=== PATIENT | female | born 1930 | race Caucasian/White ===

== ENCOUNTER 2016-05-16 07:51 | Emergency (ER) | payer MEDICARE ==
[2016-05-16 08:52] LABS: BASO # 0.1 K/mm3 (0.0-0.2); EOS # 0.2 K/mm3 (0.0-0.50); EOS % 1.2 % (0.0-3.0); LARGE UNSTAINED CELL # 0.1 K/mm3 (0.0-0.4); LARGE UNSTAINED CELL % 0.8 % (0.0-4.0); LYMPH # 1.1 K/mm3 (1.5-4.5); MEAN CORPUSCULAR HEMOGLOBIN 27.4 pg (27.0-33.0); MEAN CORPUSCULAR HGB CONC 33.6 g/dl (32.0-36.5); MEAN CORPUSCULAR VOLUME 81.7 fl (80.0-96.0); MONO # 0.5 K/mm3 (0.0-0.8); MONO % 3.1 % (0.0-5.0); NEUTROPHILS # 12.7 K/mm3 (1.8-7.7); NEUTROPHILS % 86.9 % (36.0-66.0); PLATELET COUNT, AUTOMATED 187 k/mm3 (150-450); RED CELL DISTRIBUTION WIDTH 15.1 % (11.5-14.5); WHITE BLOOD COUNT 14.6 K/mm3 (4.0-10.0)
[2016-05-16 09:06] LABS: ANION GAP 11 MEQ/L (8-16); BLOOD UREA NITROGEN 19 MG/DL (7-18); CALCIUM LEVEL 9.1 MG/DL (8.8-10.2); CARBON DIOXIDE LEVEL 25 MEQ/L (21-32); CHLORIDE LEVEL 104 MEQ/L (98-107); CREATININE FOR GFR 0.95 MG/DL (0.55-1.02); GLOMERULAR FILTRATION RATE 59.7 (>32); GLUCOSE, FASTING 127 MG/DL (83-110); POTASSIUM SERUM 4.5 MEQ/L (3.5-5.1); SODIUM LEVEL 140 MEQ/L (136-145)
--- NOTE | 2016-05-16 10:04 | REP ---
TWO VIEW CHEST: Two views of the chest are performed and compared to prior study of 12/09/2013. There is mild chronic stable interstitial prominence bilaterally. There is no acute infiltrate or pulmonary edema. The heart is not enlarged. The mediastinal silhouette is unchanged. There is some tortuosity of the thoracic aorta. There is curvature of the thoracic spine convex to the right with diffuse degenerative changes. IMPRESSION: No acute pulmonary disease. Signed by Rj Dominguez MD 05/16/2016 01:27 P
--- NOTE | 2016-05-16 14:45 | EDDOCDS ---
Nurse's Notes [facility] Name: Madeline Hogue Age: 85 yrs Sex: Female : 1930 Arrival Date: 05/16/2016 Time: 07:51 Bed 11 Private MD: Sara Christianson E Diagnosis: Shortness of breath Presentation: 05/16 07:53 Presenting complaint: EMS states: Increasing SOB for years. This morning felt like hs1 heart was racing while she was SOB. Pt states has been following up with Dr Christinason for increasing SOB. Pt states she was nauseated this morning and EMS gave 4 mg Zofran. Pt Denies chest pain. Pt did take 325 ASA before EMS arrival. Adult Sepsis Screening: The patient does not have new or worsening altered mentation. Patient's respiratory rate is less than 22. Systolic blood pressure is greater than 100. Patient has a qSOFA score of 0- Negative Sepsis Screen. Suicide/Homicide risk assessment- the patient denies having any suicidal and/or homicidal ideations and does not present with any other emotional, behavioral or mental health complaints. Status: Patient is not a marketing services manager or dependent. Transition of care: patient was not received from another setting of care. 07:53 Acuity: DEE Level 3 hs1 07:53 Method Of Arrival: Ambulance hs1 Triage Assessment: 08:33 General: Appears in no apparent distress, comfortable, Behavior is appropriate for age, hs1 cooperative. Pain: Denies pain. Neurological: Level of Consciousness is awake, alert. Cardiovascular: Rhythm is sinus rhythm No ectopy. Respiratory: Onset: The symptoms/episode began/occurred years ago. Derm: Skin is pink, warm & dry. normal. Historical: - Allergies: SULFA (SULFONAMIDES); Ciprofloxacin; - Home Meds: 1. valsartan 80 mg oral tab 1 tab nightly (Last dose: 05/15/2016) 2. atenolol 25 mg Oral tab 1 tab once daily (Last dose: 05/15/2016) 3. Vitamin D 1000 Oral 1,000 unit 2 tabs in am and 3 tabs in pm (Last dose: 05/15/2016) 4. amlodipine 5 mg Oral tab 1 tab once daily (Last dose: 05/15/2016) 5. Sertraline 100 mg daily (Last dose: 05/15/2016) 6. multivitamin Oral tab 1 tablet daily (Last dose: 05/15/2016) 7. acetaminophen 500 mg Oral cap 2 caps every 6 hours (Last dose: 05/15/2016) 8. metronidazole 0.75 % topical lotn 2 times per day 9. Astepro 0.15 % (205.5 mcg) nasal spry 1 spray 2 times per day - PMHx: Hypertension; Depression; - PSHx: Cholecystectomy; Appendectomy; Tubal ligation; - Social history: Smoking status: Patient states was never smoker of tobacco. No barriers to communication noted, The patient speaks fluent Bahraini, Speaks appropriately for age, Preferred Language: Bahraini. - Family history: Not pertinent. - : The pt / caregiver states he / she is not on anticoagulants. Home medication list is obtained from the patient, Dr Christianson med list from office visit. - Exposure Risk Screening:: None identified. Screenin:52 Infection Control. lbd 08:35 Screening information is obtained from the patient. Fall risk: No risks identified. hs1 Assistance ADL's: requires no assistance with activities of daily living. Abuse/DV Screen: The patient / caregiver reports he/she is: not in a situation that causes fear, pain or injury. Nutritional screening: No deficits noted. Advance Directives: There is no active DNR order. home support is adequate. Assessment: 08:36 General: Appears in no apparent distress, Behavior is appropriate for age, cooperative. hs1 Cardiovascular: Rhythm is sinus rhythm Chest pain is denied. Respiratory: Airway is patent Respiratory effort is even, unlabored, Breath sounds are clear bilaterally. Derm: Skin is pink, warm & dry. normal. 08:55 Reassessment: Patient appears in no apparent distress at this time. Pt states feeling hs1 hungry. Aware of waiting for test results and then conversation with MD regarding diet. . Pain: Denies pain. 09:45 General: Appears in no apparent distress, resting with family present. Pt aware of hs1 breakfast tray coming. No other needs. Pt and family discussing the fact that patient has not been eating well and is to tired she says to make meals. Discussion held regarding use of protein supplements (Ensure and Boost) and patient states she takes those sometimes. . Respiratory: Airway is patent Respiratory effort is even, unlabored. 10:55 General: Ambulatory Pulse Oximetry - tolerated well. pt states feeling weak and states hs1 that she doesn't eat very well. Pt 92% on RA while ambulatory.. 12:01 General: Appears in no apparent distress, comfortable, Behavior is appropriate for age, hs1 cooperative, Pt resting on stretcher concerned for snowfall increasing and getting home. Pt asking for MD to come in and speak regarding plan of more blood work- and patient is unsure if she wants to stay or not. No other needs noted. Pt's son present. . 13:00 General: Appears in no apparent distress, comfortable, Behavior is appropriate for age, hs1 cooperative, Pt resting son still at bedside. Pt still awaiting conversation with physician. Pt sitting up eating lunch at present no other needs noted. . Pain: Denies pain. Cardiovascular: Rhythm is sinus rhythm No ectopy. Respiratory: Airway is patent Respiratory effort is even, unlabored. 14:41 Reassessment: Patient appears in no apparent distress at this time. Patient states hs1 feeling better. Patient states symptoms have improved. Cardiovascular: Rhythm is sinus rhythm No ectopy. Respiratory: Airway is patent Respiratory effort is even, unlabored. Derm: No deficits noted. Vital Signs: 08:07 BP 155 / 67; Pulse 75; Resp 18; Temp 96.2(O); Pulse Ox 96% on R/A; Weight 68.04 kg; hs1 Height 4 ft. 11 in. (149.86 cm); Pain 0/10; 08:21 BP 183 / 75 (auto/); hs1 08:21 Pulse 76 MON; Pulse Ox 95% ; hs1 08:51 BP 138 / 67 (auto/); hs1 08:52 Pulse 72 MON; Pulse Ox 96% ; hs1 09:06 BP 111 / 52 (auto/); hs1 09:07 Pulse 72 MON; Pulse Ox 94% ; hs1 09:21 BP 143 / 65 (auto/); hs1 09:21 Pulse 72 MON; Pulse Ox 93% ; hs1 09:36 BP 157 / 70 (auto/); hs1 09:37 Pulse 80 MON; Pulse Ox 96% ; hs1 09:51 BP 157 / 66 (auto/); hs1 09:51 Pulse 76 MON; Pulse Ox 94% ; hs1 10:31 BP 154 / 63 (auto/); hs1 10:32 Pulse 76 MON; Pulse Ox 94% ; hs1 10:47 BP 131 / 63 (auto/); hs1 10:48 Pulse 76 MON; Pulse Ox 94% ; hs1 11:01 BP 146 / 69 (auto/); hs1 11:01 Pulse 76 MON; Pulse Ox 94% ; hs1 11:14 BP 162 / 70 (auto/); hs1 11:15 Pulse 80 MON; Pulse Ox 95% ; hs1 11:44 BP 133 / 84 (auto/); hs1 11:44 Pulse 72 MON; Pulse Ox 92% ; hs1 12:14 BP 135 / 60 (auto/); hs1 12:14 Pulse 76 MON; Temp 98.5(T); Pulse Ox 93% ; hs1 13:13 Pulse 76 MON; hs1 13:14 BP 125 / 61 (auto/); hs1 13:44 BP 120 / 74 (auto/); hs1 14:13 Pulse 74 MON; Pulse Ox 91% ; hs1 14:14 BP 130 / 60 (auto/); hs1 14:41 BP 130 / 62; Pulse 73; Resp 18; Temp 98.5; Pulse Ox 93% ; Pain 0/10; hs1 08:07 Body Mass Index 30.30 (68.04 kg, 149.86 cm) hs1 Vitals: 08:07 Log In Time N/A - ambulance arrival. hs1 ED Course: 07:52 Patient visited by Keiry Philip, Food Production Manager. lbd 07:52 Patient moved to Waiting lbd 07:53 Sara Christianson is Private Physician. lbd 07:53 Patient moved to 11 dy 07:56 Triage Initiated hs1 07:57 Paco Guzman MD is Attending Physician. br1 08:12 Patient visited by Nick Hooper PCA. jrd 08:12 EKG done. (by ED staff). Reviewed by Paco Guzman MD. jrd 08:15 Patient visited by Paco Guzman MD. br1 08:31 -Influenza A&B Rapid Antigen - Nose Sent. hs1 08:31 BNP Sent. hs1 08:31 Basic Metabolic Profile Sent. hs1 08:32 CBC with Diff Sent. hs1 08:32 Cardiac Injury Profile Sent. hs1 08:32 Troponin Sent. hs1 08:34 Maintain field IV. Dressing intact. Gauge & site: 20 gauge in Left AC. hs1 08:51 Patient visited by Neetu Newsome RN. hs1 08:56 The patient / caregiver is instructed regarding the plan of care and ED course. hs1 09:01 [facility] Payment Agreement was scanned into [employer] and attached to record. lg 09:25 Patient visited by Neetu Newsome RN. hs1 10:27 Patient visited by Neetu Newsome RN. hs1 10:34 Chest, 2 View (pa\E\lat) Returned. EDMS 10:57 Patient visited by Neetu Newsome RN. hs1 11:27 Patient visited by Neetu Newsome RN. hs1 12:00 Patient visited by Neetu Newsome RN. hs1 12:59 Patient visited by Neetu Newsome RN. hs1 13:32 Patient visited by Neetu Newsome RN. hs1 13:50 CARDIAC MARKER PANEL Sent. hs1 14:27 Patient visited by Neetu Newsome RN. hs1 14:27 Patient visited by Paco Guzman MD. br1 14:37 Sara Christianson is Referral Physician. br1 14:42 Discontinued IV lock intact, bleeding controlled, pressure dressing applied, No hs1 redness/swelling at site. No procedures done that require assistance. Order Results: Lab Order: Basic Metabolic Profile; SPEC'M 05/16/16 08:23 Test: GLUCOSE, FASTING; Value: 127; Range: 83-110; Abnormal: Above high normal; Units: MG/DL; Status: F Test: BLOOD UREA NITROGEN; Value: 19; Range: 7-18; Abnormal: Above high normal; Units: MG/DL; Status: F Test: CREATININE FOR GFR; Value: 0.95; Range: 0.55-1.02; Units: MG/DL; Status: F Test: GLOMERULAR FILTRATION RATE; Value: 59.7; Range: >32; Status: F Test: SODIUM LEVEL; Value: 140; Range: 136-145; Units: MEQ/L; Status: F Test: POTASSIUM SERUM; Value: 4.5; Range: 3.5-5.1; Units: MEQ/L; Status: F Test: CHLORIDE LEVEL; Value: 104; Range: 98-107; Units: MEQ/L; Status: F Test: CARBON DIOXIDE LEVEL; Value: 25; Range: 21-32; Units: MEQ/L; Status: F Test: ANION GAP; Value: 11; Range: 8-16; Units: MEQ/L; Status: F Test: CALCIUM LEVEL; Value: 9.1; Range: 8.8-10.2; Units: MG/DL; Status: F Test Note: ; Units are mL/min/1.73 m2 Chronic Kidney Disease Staging per NKF: Stage I & II GFR >=60 Normal to Mildly Decreased Stage III GFR 30-59 Moderately Decreased Stage IV GFR 15-29 Severely Decreased Stage V GFR <15 Very Little GFR Left ESRD GFR <15 on BEREAVEMENT COUNSELOR Lab Order: CBC with Diff; SPEC'M 05/16/16 08:23 Test: WHITE BLOOD COUNT; Value: 14.6; Range: 4.0-10.0; Abnormal: Above high normal; Units: K/mm3; Status: F Test: RED BLOOD COUNT; Value: 5.11; Range: 4.00-5.40; Units: M/mm3; Status: F Test: HEMOGLOBIN; Value: 14.0; Range: 12.0-16.0; Units: g/dl; Status: F Test: HEMATOCRIT; Value: 41.7; Range: 36.0-47.0; Units: %; Status: F Test: MEAN CORPUSCULAR VOLUME; Value: 81.7; Range: 80.0-96.0; Units: fl; Status: F Test: MEAN CORPUSCULAR HEMOGLOBIN; Value: 27.4; Range: 27.0-33.0; Units: pg; Status: F Test: MEAN CORPUSCULAR HGB CONC; Value: 33.6; Range: 32.0-36.5; Units: g/dl; Status: F Test: RED CELL DISTRIBUTION WIDTH; Value: 15.1; Range: 11.5-14.5; Abnormal: Above high normal; Units: %; Status: F Test: PLATELET COUNT, AUTOMATED; Value: 187; Range: 150-450; Units: k/mm3; Status: F Test: NEUTROPHILS %; Value: 86.9; Range: 36.0-66.0; Abnormal: Above high normal; Units: %; Status: F Test: LYMPH %; Value: 7.0; Range: 24.0-44.0; Abnormal: Below low normal; Units: %; Status: F Test: MONO %; Value: 3.1; Range: 0.0-5.0; Units: %; Status: F Test: EOS %; Value: 1.2; Range: 0.0-3.0; Units: %; Status: F Test: BASO %; Value: 1.0; Range: 0.0-1.0; Units: %; Status: F Test: LARGE UNSTAINED CELL %; Value: 0.8; Range: 0.0-4.0; Units: %; Status: F Test: NEUTROPHILS #; Value: 12.7; Range: 1.8-7.7; Abnormal: Above high normal; Units: K/mm3; Status: F Test: LYMPH #; Value: 1.1; Range: 1.5-4.5; Abnormal: Below low normal; Units: K/mm3; Status: F Test: MONO #; Value: 0.5; Range: 0.0-0.8; Units: K/mm3; Status: F Test: EOS #; Value: 0.2; Range: 0.0-0.50; Units: K/mm3; Status: F Test: BASO #; Value: 0.1; Range: 0.0-0.2; Units: K/mm3; Status: F Test: LARGE UNSTAINED CELL #; Value: 0.1; Range: 0.0-0.4; Units: K/mm3; Status: F Lab Order: Cardiac Injury Profile; SPEC'M 05/16/16 08:23 Test: CPK CREATINE PHOSPHOKINASE; Value: 90; Range: 26-192; Units: U/L; Status: F Test: CK-MB VALUE MASS; Value: 1.3; Range: 0.0-3.6; Units: NG/ML; Status: F Test: MB/CK RELATIVE INDEX; Value: 1.44; Range: < OR =4; Status: F Test Note: ; DIAGNOSIS CRITERIA MMB ng/ml Relative Index (RI) NON-AMI < or = 5 N/A DOMINGUEZ ZONE > 5 < or = 4 AMI > 5 > 4 Lab Order: Troponin; SPEC'M 01/06/17 08:23 Test: TROPONIN I; Value: < 0.02; Range: < 0.10; Units: NG/ML; Status: F Test Note: ; Troponin I Reference Interval for [employer] [place] LOCI: 99th Percentile= 0.00-0.045 ng/ml Risk Stratification: <= 0.10 ng/ml Decreased Risk for Adverse Clinical Events. 0.10-1.50 ng/ml Increased Risk for Adverse Clinical Events. Evaluation of additional criterion and/or repeat testing in 2-6 hours is suggested to rule out myocardial damage. >= 1.50 ng/ml Indicative of Myocardial Injury. Lab Order: BNP; SPEC'M 05/16/16 08:23 Test: BRAIN NATRIURETIC PEPTIDE; Value: 360; Range: <100; Abnormal: Above high normal; Units: PG/ML; Status: F Lab Order: -Influenza A&B Rapid Antigen - Nose; SPEC'M 05/16/16 08:27 Test: INFLUENZA A RAPID SCR by ICA; Value: INFLUENZA A RESULTS NEGATIVE; Status: F Test: INFLUENZA A RAPID SCR by ICA; Value: Comments:; Status: F Test: INFLUENZA B RAPID SCR by ICA; Value: INFLUENZA B RESULTS NEGATIVE; Status: F Test Note: ; The Influenza test is a direct rapid immunoassay for the qualitative detection of Influenza viral antigen. Cell culture (Viral Culture) testing should be considered to confirm NEGATIVE results and to assist in detecting other viruses that can provide similar clinical symptoms. Please contact the lab within 24 hours ([phone]) if confirmatory testing is desired. Lab Order: CARDIAC MARKER PANEL; SPEC'M 05/16/16 13:49 Test: CPK CREATINE PHOSPHOKINASE; Value: 73; Range: 26-192; Units: U/L; Status: F Test: CK-MB VALUE MASS; Value: 1.8; Range: 0.0-3.6; Units: NG/ML; Status: F Test: MB/CK RELATIVE INDEX; Value: 2.46; Range: < OR =4; Status: F Test: TROPONIN I; Value: < 0.02; Range: < 0.10; Units: NG/ML; Status: F Test Note: ; DIAGNOSIS CRITERIA MMB ng/ml Relative Index (RI) NON-AMI < or = 5 N/A DOMINGUEZ ZONE > 5 < or = 4 AMI > 5 > 4 Radiology Order: Chest, 2 View (pa\E\lat) Test: Chest, 2 View (pa\E\lat) REASON FOR EXAMINATION: Shortness of Breath; TWO VIEW CHEST:; ; Two views of the chest are performed and compared to prior study of 12/09/2013.; ; ; There is mild chronic stable interstitial prominence bilaterally. There is no; acute infiltrate or pulmonary edema. The heart is not enlarged. The mediastinal; silhouette is unchanged. There is some tortuosity of the thoracic aorta. There; is curvature of the thoracic spine convex to the right with diffuse degenerative; changes.; ; IMPRESSION:; ; No acute pulmonary disease.; ; ; Signed by; Rj Dominguez MD 05/16/2016 01:27 P; Outcome: 14:37 Discharge ordered by Provider. br1 14:42 Discharge Assessment: Patient awake, alert and oriented x 3. No cognitive and/or hs1 functional deficits noted. Patient verbalized understanding of disposition instructions. patient administered narcotics - no. The following High Risk Discharge criteria are identified: None. Discharged to home ambulatory. Condition: good. Discharge instructions given to patient, Instructed on discharge instructions, follow up and referral plans. medication usage, Demonstrated understanding of instructions, medications, Pt was receptive of discharge instructions/ teaching. No special radiology studies were completed. Property sent home with patient. 14:43 Patient left the ED. hs1 Signatures: Dispatcher [employer] EDMS Keiry Philip, Food Production Manager Unit lbd Lee Ann Corbett, Pepe Pelayo lg, RN Paco Levy MD MD br1 Neetu Newsome RN RN hs1 Nick Hooper PCA PCA jrd Corrections: (The following items were deleted from the chart) 13:05 12:14 Pulse 76bpm; Monitor; Pulse Ox 93%; hs1 hs1 MTDD
--- NOTE | 2016-05-16 14:45 | EDDOCDS ---
Physician Documentation [facility] [place] Name: Madeline Hogue Age: 85 yrs Sex: Female : 1930 Arrival Date: 05/16/2016 Time: 07:51 Bed 11 Private MD: Sara Christianson E Disposition: 05/16/16 14:37 Discharged to Home/Self Care. Impression: Shortness of breath. - Condition is Stable. - Discharge Instructions: Shortness of Breath. - Medication Reconciliation, Local Pharmacy Hours form. - Follow up: Sara Christianson; When: 1 week; Reason: Recheck today's complaints. - Problem is new. - Symptoms are resolved. - Notes: You were seen in the ED for shortness of breath. Bloodwork along with EKG of the heart and chest Xray showed no acute findings. As you are feeling better you may return home to keep your appointment to see Dr. Christianson next week for further evaluation. Please call today to confirm the appointment.
Return to the ED for any return of shortness of breath, chest pain, lightheadedness, loss of consciousness or any other concerns. Historical: - Allergies: SULFA (SULFONAMIDES); Ciprofloxacin; - Home Meds: 1. valsartan 80 mg oral tab 1 tab nightly (Last dose: 05/15/2016) 2. atenolol 25 mg Oral tab 1 tab once daily (Last dose: 05/15/2016) 3. Vitamin D 1000 Oral 1,000 unit 2 tabs in am and 3 tabs in pm (Last dose: 05/15/2016) 4. amlodipine 5 mg Oral tab 1 tab once daily (Last dose: 05/15/2016) 5. Sertraline 100 mg daily (Last dose: 05/15/2016) 6. multivitamin Oral tab 1 tablet daily (Last dose: 05/15/2016) 7. acetaminophen 500 mg Oral cap 2 caps every 6 hours (Last dose: 05/15/2016) 8. metronidazole 0.75 % topical lotn 2 times per day 9. Astepro 0.15 % (205.5 mcg) nasal spry 1 spray 2 times per day - PMHx: Hypertension; Depression; - PSHx: Cholecystectomy; Appendectomy; Tubal ligation; - Social history: Smoking status: Patient states was never smoker of tobacco. No barriers to communication noted, The patient speaks fluent Telugu, Speaks appropriately for age, Preferred Language: Telugu. - Family history: Not pertinent. - : The pt / caregiver states he / she is not on anticoagulants. Home medication list is obtained from the patient, Dr Christianson med list from office visit. - Exposure Risk Screening:: None identified. Vital Signs: 05/16 08:07 BP 155 / 67; Pulse 75; Resp 18; Temp 96.2(O); Pulse Ox 96% on R/A; Weight 68.04 kg / hs1 150 lbs; Height 4 ft. 11 in. (149.86 cm); Pain 0/10; 08:21 BP 183 / 75 (auto/); hs1 08:21 Pulse 76 MON; Pulse Ox 95% ; hs1 08:51 BP 138 / 67 (auto/); hs1 08:52 Pulse 72 MON; Pulse Ox 96% ; hs1 09:06 BP 111 / 52 (auto/); hs1 09:07 Pulse 72 MON; Pulse Ox 94% ; hs1 09:21 BP 143 / 65 (auto/); hs1 09:21 Pulse 72 MON; Pulse Ox 93% ; hs1 09:36 BP 157 / 70 (auto/); hs1 09:37 Pulse 80 MON; Pulse Ox 96% ; hs1 09:51 BP 157 / 66 (auto/); hs1 09:51 Pulse 76 MON; Pulse Ox 94% ; hs1 10:31 BP 154 / 63 (auto/); hs1 10:32 Pulse 76 MON; Pulse Ox 94% ; hs1 10:47 BP 131 / 63 (auto/); hs1 10:48 Pulse 76 MON; Pulse Ox 94% ; hs1 11:01 BP 146 / 69 (auto/); hs1 11:01 Pulse 76 MON; Pulse Ox 94% ; hs1 11:14 BP 162 / 70 (auto/); hs1 11:15 Pulse 80 MON; Pulse Ox 95% ; hs1 11:44 BP 133 / 84 (auto/); hs1 11:44 Pulse 72 MON; Pulse Ox 92% ; hs1 12:14 BP 135 / 60 (auto/); hs1 12:14 Pulse 76 MON; Temp 98.5(T); Pulse Ox 93% ; hs1 13:13 Pulse 76 MON; hs1 13:14 BP 125 / 61 (auto/); hs1 13:44 BP 120 / 74 (auto/); hs1 14:13 Pulse 74 MON; Pulse Ox 91% ; hs1 14:14 BP 130 / 60 (auto/); hs1 14:41 BP 130 / 62; Pulse 73; Resp 18; Temp 98.5; Pulse Ox 93% ; Pain 0/10; hs1 08:07 Body Mass Index 30.30 (68.04 kg, 149.86 cm) hs1 MDM: 07:58 Asp Net C Developer/Pulse Ox/q 30 min VS ordered. br1 07:58 IV Saline Lock ordered. br1 07:58 Rhythm Strip to chart ordered. br1 07:58 Undress patient appropriately for examination ordered. br1 07:59 Basic Metabolic Profile Ordered. EDMS 07:59 CBC with Diff Ordered. EDMS 07:59 Cardiac Injury Profile Ordered. EDMS 07:59 Troponin Ordered. EDMS 07:59 ECG WITH READING ER PHYS+CARDIAG ordered. EDMS 08:01 BNP Ordered. EDMS 08:16 -Influenza A&B Rapid Antigen - Nose Ordered. EDMS 08:16 Chest, 2 View (pa\E\lat) Ordered. EDMS 08:25 Financial registration complete. lg 09:01 [facility] Payment Agreement was scanned into [employer] and attached to record. lg 09:54 REGULAR+DIET ordered. EDMS 10:21 Basic Metabolic Profile Reviewed. br1 10:21 CBC with Diff Reviewed. br1 10:21 BNP Reviewed. br1 10:21 Cardiac Injury Profile Reviewed. br1 10:21 Troponin Reviewed. br1 10:21 -Influenza A&B Rapid Antigen - Nose Reviewed. br1 10:[address] [facility] Pulse Oximetry ordered. br1 10:43 Repeat EKG (put time details section) ordered. br1 10:43 Redraw CIP &Troponin (put time in details section) ordered. br1 10:46 Repeat EKG (put time details section) complete. lbd 10:46 Redraw CIP &Troponin (put time in details section) complete. lbd 10:49 CARDIAC MARKER PANEL Ordered. EDMS 10:50 ECG WITH READING ER PHYS ordered. EDMS 11:27 REGULAR+DIET ordered. EDMS 14:26 CARDIAC MARKER PANEL Reviewed. br1 14:26 Chest, 2 View (pa\E\lat) Reviewed. br1 Signatures: Dispatcher [employer] EDMS Keiry Philip, Team Lead Unit lbd Lee Ann Corbett, Reg Reg lg Paco Guzman MD MD br1 Neetu Newsome RN RN hs1 The chart was reviewed and I authenticate all verbal orders and agree with the evaluation and treatment provided.Attachments: 09:01 [facility] Payment Agreement lg MTDD
--- NOTE | 2016-05-17 08:26 | ECGEPIP ---
Stationary ECG Study [facility] - ED Test Date: 2016-05-16 Pat Name: ANUSHA ALVARENGA Department: Room: - Gender: F Adjunct Lecturer: mickie : 1930 Requested By: DOMINGO Moon Order Number: [id number] Reading MD: Odalis Alas Measurements Intervals [place] Rate: 74 P: 73 HI: 141 QRS: 54 QRSD: 91 T: 50 QT: 395 QTc: 439 Interpretive Statements SINUS RHYTHM NSTTW ABNORMALITY SIMILAR 12/09/13 Electronically Signed On 05-17-2016 8:26:04 EST by Odalis Alas
--- NOTE | 2016-05-17 08:35 | ECGEPIP ---
Stationary ECG Study [facility] - ED Test Date: 2016-05-16 Pat Name: ANUSHA ALVARENGA Department: Room: - Gender: F Burner Hand: rn : 1930 Requested By: DOMINGO Moon Order Number: [id number] Reading MD: Odalis Alas Measurements Intervals [place] Rate: 70 P: 60 MD: 148 QRS: 43 QRSD: 90 T: 52 QT: 401 QTc: 434 Interpretive Statements SINUS RHYTHM NSTTW ABNORMALITY SIMILAR 05/16/16 8:07 Electronically Signed On 05-17-2016 8:34:35 EST by Odalis Alas
--- NOTE | 2016-05-20 09:16 | EDDOCDS ---
Physician Documentation [facility] Name: Madeline Hogue Age: 85 yrs Sex: Female : 1930 Arrival Date: 05/16/2016 Time: 07:51 Bed 11 Private MD: Sara Christianson E Disposition: 05/16/16 14:37 Discharged to Home/Self Care. Impression: Shortness of breath. - Condition is Stable. - Discharge Instructions: Shortness of Breath. - Medication Reconciliation, Local Pharmacy Hours form. - Follow up: Sara Christianson; When: 1 week; Reason: Recheck today's complaints. - Problem is new. - Symptoms are resolved. - Notes: You were seen in the ED for shortness of breath. Bloodwork along with EKG of the heart and chest Xray showed no acute findings. As you are feeling better you may return home to keep your appointment to see Dr. Christianson next week for further evaluation. Please call today to confirm the appointment.
Return to the ED for any return of shortness of breath, chest pain, lightheadedness, loss of consciousness or any other concerns. Historical: - Allergies: SULFA (SULFONAMIDES); Ciprofloxacin; - Home Meds: 1. valsartan 80 mg oral tab 1 tab nightly (Last dose: 05/15/2016) 2. atenolol 25 mg Oral tab 1 tab once daily (Last dose: 05/15/2016) 3. Vitamin D 1000 Oral 1,000 unit 2 tabs in am and 3 tabs in pm (Last dose: 05/15/2016) 4. amlodipine 5 mg Oral tab 1 tab once daily (Last dose: 05/15/2016) 5. Sertraline 100 mg daily (Last dose: 05/15/2016) 6. multivitamin Oral tab 1 tablet daily (Last dose: 05/15/2016) 7. acetaminophen 500 mg Oral cap 2 caps every 6 hours (Last dose: 05/15/2016) 8. metronidazole 0.75 % topical lotn 2 times per day 9. Astepro 0.15 % (205.5 mcg) nasal spry 1 spray 2 times per day - PMHx: Hypertension; Depression; - PSHx: Cholecystectomy; Appendectomy; Tubal ligation; - Social history: Smoking status: Patient states was never smoker of tobacco. No barriers to communication noted, The patient speaks fluent Amharic, Speaks appropriately for age, Preferred Language: Amharic. - Family history: Not pertinent. - : The pt / caregiver states he / she is not on anticoagulants. Home medication list is obtained from the patient, Dr Christianson med list from office visit. - Exposure Risk Screening:: None identified. Vital Signs: 05/16 08:07 BP 155 / 67; Pulse 75; Resp 18; Temp 96.2(O); Pulse Ox 96% on R/A; Weight 68.04 kg / hs1 150 lbs; Height 4 ft. 11 in. (149.86 cm); Pain 0/10; 08:21 BP 183 / 75 (auto/); hs1 08:21 Pulse 76 MON; Pulse Ox 95% ; hs1 08:51 BP 138 / 67 (auto/); hs1 08:52 Pulse 72 MON; Pulse Ox 96% ; hs1 09:06 BP 111 / 52 (auto/); hs1 09:07 Pulse 72 MON; Pulse Ox 94% ; hs1 09:21 BP 143 / 65 (auto/); hs1 09:21 Pulse 72 MON; Pulse Ox 93% ; hs1 09:36 BP 157 / 70 (auto/); hs1 09:37 Pulse 80 MON; Pulse Ox 96% ; hs1 09:51 BP 157 / 66 (auto/); hs1 09:51 Pulse 76 MON; Pulse Ox 94% ; hs1 10:31 BP 154 / 63 (auto/); hs1 10:32 Pulse 76 MON; Pulse Ox 94% ; hs1 10:47 BP 131 / 63 (auto/); hs1 10:48 Pulse 76 MON; Pulse Ox 94% ; hs1 11:01 BP 146 / 69 (auto/); hs1 11:01 Pulse 76 MON; Pulse Ox 94% ; hs1 11:14 BP 162 / 70 (auto/); hs1 11:15 Pulse 80 MON; Pulse Ox 95% ; hs1 11:44 BP 133 / 84 (auto/); hs1 11:44 Pulse 72 MON; Pulse Ox 92% ; hs1 12:14 BP 135 / 60 (auto/); hs1 12:14 Pulse 76 MON; Temp 98.5(T); Pulse Ox 93% ; hs1 13:13 Pulse 76 MON; hs1 13:14 BP 125 / 61 (auto/); hs1 13:44 BP 120 / 74 (auto/); hs1 14:13 Pulse 74 MON; Pulse Ox 91% ; hs1 14:14 BP 130 / 60 (auto/); hs1 14:41 BP 130 / 62; Pulse 73; Resp 18; Temp 98.5; Pulse Ox 93% ; Pain 0/10; hs1 08:07 Body Mass Index 30.30 (68.04 kg, 149.86 cm) hs1 MDM: 07:58 Volumetric Weigher/Pulse Ox/q 30 min VS ordered. br1 07:58 IV Saline Lock ordered. br1 07:58 Rhythm Strip to chart ordered. br1 07:58 Undress patient appropriately for examination ordered. br1 07:59 Basic Metabolic Profile Ordered. EDMS 07:59 CBC with Diff Ordered. EDMS 07:59 Cardiac Injury Profile Ordered. EDMS 07:59 Troponin Ordered. EDMS 07:59 ECG WITH READING ER PHYS+CARDIAG ordered. EDMS 08:01 BNP Ordered. EDMS 08:16 -Influenza A&B Rapid Antigen - Nose Ordered. EDMS 08:16 Chest, 2 View (pa\E\lat) Ordered. EDMS 08:25 Financial registration complete. lg 09:01 [facility] Payment Agreement was scanned into [email or web address] and attached to record. lg 09:54 REGULAR+DIET ordered. EDMS 10:21 Basic Metabolic Profile Reviewed. br1 10:21 CBC with Diff Reviewed. br1 10:21 BNP Reviewed. br1 10:21 Cardiac Injury Profile Reviewed. br1 10:21 Troponin Reviewed. br1 10:21 -Influenza A&B Rapid Antigen - Nose Reviewed. br1 10:24 Ambulate Patient wt Pulse Oximetry ordered. br1 10:43 Repeat EKG (put time details section) ordered. br1 10:43 Redraw CIP &Troponin (put time in details section) ordered. br1 10:46 Repeat EKG (put time details section) complete. lbd 10:46 Redraw CIP &Troponin (put time in details section) complete. lbd 10:49 CARDIAC MARKER PANEL Ordered. EDMS 10:50 ECG WITH READING ER PHYS ordered. EDMS 11:27 REGULAR+DIET ordered. EDMS 14:26 CARDIAC MARKER PANEL Reviewed. br1 14:26 Chest, 2 View (pa\E\lat) Reviewed. br1 05/17 09:01 T-Sheet-- Draft Copy was scanned into [employer] and attached to record. gb 09:01 ECG/EKG was scanned into [employer] and attached to record. gb 09:01 Radiology Report was scanned into [employer] and attached to record. gb 12:54 PCR was scanned into [employer] and attached to record. gb Signatures: Dispatcher [employer] EDMS Keiry Philip, Spooler Operator Unit lbd Tova Monroy, Reg Reg gb Lee Ann Corbett, Reg Reg lg Paco Guzman MD MD br1 Neetu Newsome, RN RN hs1 The chart was reviewed and I authenticate all verbal orders and agree with the evaluation and treatment provided.Attachments: 05/16 09:01 [facility] Payment Agreement lg 05/17 09:01 T-Sheet-- Draft Copy gb 09:01 ECG/EKG gb Chart Complete MTDD
--- NOTE | 2016-05-20 09:16 | EDDOCDS ---
Nurse's Notes [facility] Name: Anusha Hogue Age: 85 yrs Sex: Female : 1930 Arrival Date: 05/16/2016 Time: 07:51 Bed 11 Private MD: Sara Christianson E Diagnosis: Shortness of breath Presentation: 05/16 07:53 Presenting complaint: EMS states: Increasing SOB for years. This morning felt like hs1 heart was racing while she was SOB. Pt states has been following up with Dr Christianson for increasing SOB. Pt states she was nauseated this morning and EMS gave 4 mg Zofran. Pt Denies chest pain. Pt did take 325 ASA before EMS arrival. Adult Sepsis Screening: The patient does not have new or worsening altered mentation. Patient's respiratory rate is less than 22. Systolic blood pressure is greater than 100. Patient has a qSOFA score of 0- Negative Sepsis Screen. Suicide/Homicide risk assessment- the patient denies having any suicidal and/or homicidal ideations and does not present with any other emotional, behavioral or mental health complaints. Status: Patient is not a foreign exchange services manager or dependent. Transition of care: patient was not received from another setting of care. 07:53 Acuity: DEE Level 3 hs1 07:53 Method Of Arrival: Ambulance hs1 Triage Assessment: 08:33 General: Appears in no apparent distress, comfortable, Behavior is appropriate for age, hs1 cooperative. Pain: Denies pain. Neurological: Level of Consciousness is awake, alert. Cardiovascular: Rhythm is sinus rhythm No ectopy. Respiratory: Onset: The symptoms/episode began/occurred years ago. Derm: Skin is pink, warm & dry. normal. Historical: - Allergies: SULFA (SULFONAMIDES); Ciprofloxacin; - Home Meds: 1. valsartan 80 mg oral tab 1 tab nightly (Last dose: 05/15/2016) 2. atenolol 25 mg Oral tab 1 tab once daily (Last dose: 05/15/2016) 3. Vitamin D 1000 Oral 1,000 unit 2 tabs in am and 3 tabs in pm (Last dose: 05/15/2016) 4. amlodipine 5 mg Oral tab 1 tab once daily (Last dose: 05/15/2016) 5. Sertraline 100 mg daily (Last dose: 05/15/2016) 6. multivitamin Oral tab 1 tablet daily (Last dose: 05/15/2016) 7. acetaminophen 500 mg Oral cap 2 caps every 6 hours (Last dose: 05/15/2016) 8. metronidazole 0.75 % topical lotn 2 times per day 9. Astepro 0.15 % (205.5 mcg) nasal spry 1 spray 2 times per day - PMHx: Hypertension; Depression; - PSHx: Cholecystectomy; Appendectomy; Tubal ligation; - Social history: Smoking status: Patient states was never smoker of tobacco. No barriers to communication noted, The patient speaks fluent Afghan, Speaks appropriately for age, Preferred Language: Afghan. - Family history: Not pertinent. - : The pt / caregiver states he / she is not on anticoagulants. Home medication list is obtained from the patient, Dr Christianson med list from office visit. - Exposure Risk Screening:: None identified. Screenin:52 Infection Control. lbd 08:35 Screening information is obtained from the patient. Fall risk: No risks identified. hs1 Assistance ADL's: requires no assistance with activities of daily living. Abuse/DV Screen: The patient / caregiver reports he/she is: not in a situation that causes fear, pain or injury. Nutritional screening: No deficits noted. Advance Directives: There is no active DNR order. home support is adequate. Assessment: 08:36 General: Appears in no apparent distress, Behavior is appropriate for age, cooperative. hs1 Cardiovascular: Rhythm is sinus rhythm Chest pain is denied. Respiratory: Airway is patent Respiratory effort is even, unlabored, Breath sounds are clear bilaterally. Derm: Skin is pink, warm & dry. normal. 08:55 Reassessment: Patient appears in no apparent distress at this time. Pt states feeling hs1 hungry. Aware of waiting for test results and then conversation with MD regarding diet. . Pain: Denies pain. 09:45 General: Appears in no apparent distress, resting with family present. Pt aware of hs1 breakfast tray coming. No other needs. Pt and family discussing the fact that patient has not been eating well and is to tired she says to make meals. Discussion held regarding use of protein supplements (Ensure and Boost) and patient states she takes those sometimes. . Respiratory: Airway is patent Respiratory effort is even, unlabored. 10:55 General: Ambulatory Pulse Oximetry - tolerated well. pt states feeling weak and states hs1 that she doesn't eat very well. Pt 92% on RA while ambulatory.. 12:01 General: Appears in no apparent distress, comfortable, Behavior is appropriate for age, hs1 cooperative, Pt resting on stretcher concerned for snowfall increasing and getting home. Pt asking for MD to come in and speak regarding plan of more blood work- and patient is unsure if she wants to stay or not. No other needs noted. Pt's son present. . 13:00 General: Appears in no apparent distress, comfortable, Behavior is appropriate for age, hs1 cooperative, Pt resting son still at bedside. Pt still awaiting conversation with physician. Pt sitting up eating lunch at present no other needs noted. . Pain: Denies pain. Cardiovascular: Rhythm is sinus rhythm No ectopy. Respiratory: Airway is patent Respiratory effort is even, unlabored. 14:41 Reassessment: Patient appears in no apparent distress at this time. Patient states hs1 feeling better. Patient states symptoms have improved. Cardiovascular: Rhythm is sinus rhythm No ectopy. Respiratory: Airway is patent Respiratory effort is even, unlabored. Derm: No deficits noted. Vital Signs: 08:07 BP 155 / 67; Pulse 75; Resp 18; Temp 96.2(O); Pulse Ox 96% on R/A; Weight 68.04 kg; hs1 Height 4 ft. 11 in. (149.86 cm); Pain 0/10; 08:21 BP 183 / 75 (auto/); hs1 08:21 Pulse 76 MON; Pulse Ox 95% ; hs1 08:51 BP 138 / 67 (auto/); hs1 08:52 Pulse 72 MON; Pulse Ox 96% ; hs1 09:06 BP 111 / 52 (auto/); hs1 09:07 Pulse 72 MON; Pulse Ox 94% ; hs1 09:21 BP 143 / 65 (auto/); hs1 09:21 Pulse 72 MON; Pulse Ox 93% ; hs1 09:36 BP 157 / 70 (auto/); hs1 09:37 Pulse 80 MON; Pulse Ox 96% ; hs1 09:51 BP 157 / 66 (auto/); hs1 09:51 Pulse 76 MON; Pulse Ox 94% ; hs1 10:31 BP 154 / 63 (auto/); hs1 10:32 Pulse 76 MON; Pulse Ox 94% ; hs1 10:47 BP 131 / 63 (auto/); hs1 10:48 Pulse 76 MON; Pulse Ox 94% ; hs1 11:01 BP 146 / 69 (auto/); hs1 11:01 Pulse 76 MON; Pulse Ox 94% ; hs1 11:14 BP 162 / 70 (auto/); hs1 11:15 Pulse 80 MON; Pulse Ox 95% ; hs1 11:44 BP 133 / 84 (auto/); hs1 11:44 Pulse 72 MON; Pulse Ox 92% ; hs1 12:14 BP 135 / 60 (auto/); hs1 12:14 Pulse 76 MON; Temp 98.5(T); Pulse Ox 93% ; hs1 13:13 Pulse 76 MON; hs1 13:14 BP 125 / 61 (auto/); hs1 13:44 BP 120 / 74 (auto/); hs1 14:13 Pulse 74 MON; Pulse Ox 91% ; hs1 14:14 BP 130 / 60 (auto/); hs1 14:41 BP 130 / 62; Pulse 73; Resp 18; Temp 98.5; Pulse Ox 93% ; Pain 0/10; hs1 08:07 Body Mass Index 30.30 (68.04 kg, 149.86 cm) hs1 Vitals: 08:07 Log In Time N/A - ambulance arrival. hs1 ED Course: 07:52 Patient visited by Keiry Philip, Fiscal Services Director. lbd 07:52 Patient moved to Waiting lbd 07:53 Sara Christianson is Private Physician. lbd 07:53 Patient moved to 11 dy 07:56 Triage Initiated hs1 07:57 Paco Guzman MD is Attending Physician. br1 08:12 Patient visited by Nick Hooper PCA. jrd 08:12 EKG done. (by ED staff). Reviewed by Paco Guzman MD. jrd 08:15 Patient visited by Paco Guzman MD. br1 08:31 -Influenza A&B Rapid Antigen - Nose Sent. hs1 08:31 BNP Sent. hs1 08:31 Basic Metabolic Profile Sent. hs1 08:32 CBC with Diff Sent. hs1 08:32 Cardiac Injury Profile Sent. hs1 08:32 Troponin Sent. hs1 08:34 Maintain field IV. Dressing intact. Gauge & site: 20 gauge in Left AC. hs1 08:51 Patient visited by Neetu Newsome RN. hs1 08:56 The patient / caregiver is instructed regarding the plan of care and ED course. hs1 09:01 [facility] Payment Agreement was scanned into [employer] and attached to record. lg 09:25 Patient visited by Neetu Newsome RN. hs1 10:27 Patient visited by Neetu Newsome RN. hs1 10:34 Chest, 2 View (pa\E\lat) Returned. EDMS 10:57 Patient visited by Neetu Newsome RN. hs1 11:27 Patient visited by Neetu Newsome RN. hs1 12:00 Patient visited by Neetu Newsome RN. hs1 12:59 Patient visited by Neetu Newsome RN. hs1 13:32 Patient visited by Neetu Newsome RN. hs1 13:50 CARDIAC MARKER PANEL Sent. hs1 14:27 Patient visited by Neetu Newsome RN. hs1 14:27 Patient visited by Paco Guzman MD. br1 14:37 Sara Christianson is Referral Physician. br1 14:42 Discontinued IV lock intact, bleeding controlled, pressure dressing applied, No hs1 redness/swelling at site. No procedures done that require assistance. 07 08:38 EKG-ADULT Returned. EDMS 08:39 ECG WITH READING ER PHYS Returned. EDMS 09:01 T-Sheet-- Draft Copy was scanned into [employer] and attached to record. gb 09:01 ECG/EKG was scanned into [employer] and attached to record. gb 09:01 Radiology Report was scanned into [employer] and attached to record. gb 12:54 PCR was scanned into [employer] and attached to record. gb Order Results: Lab Order: Basic Metabolic Profile; SPEC'M 05/16/16 08:23 Test: GLUCOSE, FASTING; Value: 127; Range: 83-110; Abnormal: Above high normal; Units: MG/DL; Status: F Test: BLOOD UREA NITROGEN; Value: 19; Range: 7-18; Abnormal: Above high normal; Units: MG/DL; Status: F Test: CREATININE FOR GFR; Value: 0.95; Range: 0.55-1.02; Units: MG/DL; Status: F Test: GLOMERULAR FILTRATION RATE; Value: 59.7; Range: >32; Status: F Test: SODIUM LEVEL; Value: 140; Range: 136-145; Units: MEQ/L; Status: F Test: POTASSIUM SERUM; Value: 4.5; Range: 3.5-5.1; Units: MEQ/L; Status: F Test: CHLORIDE LEVEL; Value: 104; Range: 98-107; Units: MEQ/L; Status: F Test: CARBON DIOXIDE LEVEL; Value: 25; Range: 21-32; Units: MEQ/L; Status: F Test: ANION GAP; Value: 11; Range: 8-16; Units: MEQ/L; Status: F Test: CALCIUM LEVEL; Value: 9.1; Range: 8.8-10.2; Units: MG/DL; Status: F Test Note: ; Units are mL/min/1.73 m2 Chronic Kidney Disease Staging per NKF: Stage I & II GFR >=60 Normal to Mildly Decreased Stage III GFR 30-59 Moderately Decreased Stage IV GFR 15-29 Severely Decreased Stage V GFR <15 Very Little GFR Left ESRD GFR <15 on CLAM BED WORKER Lab Order: CBC with Diff; SPEC'M 05/16/16 08:23 Test: WHITE BLOOD COUNT; Value: 14.6; Range: 4.0-10.0; Abnormal: Above high normal; Units: K/mm3; Status: F Test: RED BLOOD COUNT; Value: 5.11; Range: 4.00-5.40; Units: M/mm3; Status: F Test: HEMOGLOBIN; Value: 14.0; Range: 12.0-16.0; Units: g/dl; Status: F Test: HEMATOCRIT; Value: 41.7; Range: 36.0-47.0; Units: %; Status: F Test: MEAN CORPUSCULAR VOLUME; Value: 81.7; Range: 80.0-96.0; Units: fl; Status: F Test: MEAN CORPUSCULAR HEMOGLOBIN; Value: 27.4; Range: 27.0-33.0; Units: pg; Status: F Test: MEAN CORPUSCULAR HGB CONC; Value: 33.6; Range: 32.0-36.5; Units: g/dl; Status: F Test: RED CELL DISTRIBUTION WIDTH; Value: 15.1; Range: 11.5-14.5; Abnormal: Above high normal; Units: %; Status: F Test: PLATELET COUNT, AUTOMATED; Value: 187; Range: 150-450; Units: k/mm3; Status: F Test: NEUTROPHILS %; Value: 86.9; Range: 36.0-66.0; Abnormal: Above high normal; Units: %; Status: F Test: LYMPH %; Value: 7.0; Range: 24.0-44.0; Abnormal: Below low normal; Units: %; Status: F Test: MONO %; Value: 3.1; Range: 0.0-5.0; Units: %; Status: F Test: EOS %; Value: 1.2; Range: 0.0-3.0; Units: %; Status: F Test: BASO %; Value: 1.0; Range: 0.0-1.0; Units: %; Status: F Test: LARGE UNSTAINED CELL %; Value: 0.8; Range: 0.0-4.0; Units: %; Status: F Test: NEUTROPHILS #; Value: 12.7; Range: 1.8-7.7; Abnormal: Above high normal; Units: K/mm3; Status: F Test: LYMPH #; Value: 1.1; Range: 1.5-4.5; Abnormal: Below low normal; Units: K/mm3; Status: F Test: MONO #; Value: 0.5; Range: 0.0-0.8; Units: K/mm3; Status: F Test: EOS #; Value: 0.2; Range: 0.0-0.50; Units: K/mm3; Status: F Test: BASO #; Value: 0.1; Range: 0.0-0.2; Units: K/mm3; Status: F Test: LARGE UNSTAINED CELL #; Value: 0.1; Range: 0.0-0.4; Units: K/mm3; Status: F Lab Order: Cardiac Injury Profile; SPEC'M 05/16/16 08:23 Test: CPK CREATINE PHOSPHOKINASE; Value: 90; Range: 26-192; Units: U/L; Status: F Test: CK-MB VALUE MASS; Value: 1.3; Range: 0.0-3.6; Units: NG/ML; Status: F Test: MB/CK RELATIVE INDEX; Value: 1.44; Range: < OR =4; Status: F Test Note: ; DIAGNOSIS CRITERIA MMB ng/ml Relative Index (RI) NON-AMI < or = 5 N/A DOMINGUEZ ZONE > 5 < or = 4 AMI > 5 > 4 Lab Order: Troponin; SPEC'M 05/16/16 08:23 Test: TROPONIN I; Value: < 0.02; Range: < 0.10; Units: NG/ML; Status: F Test Note: ; Troponin I Reference Interval for [employer] LOCI: 99th Percentile= 0.00-0.045 ng/ml Risk Stratification: <= 0.10 ng/ml Decreased Risk for Adverse Clinical Events. 0.10-1.50 ng/ml Increased Risk for Adverse Clinical Events. Evaluation of additional criterion and/or repeat testing in 2-6 hours is suggested to rule out myocardial damage. >= 1.50 ng/ml Indicative of Myocardial Injury. Lab Order: BNP; SPEC'M 05/16/16 08:23 Test: BRAIN NATRIURETIC PEPTIDE; Value: 360; Range: <100; Abnormal: Above high normal; Units: PG/ML; Status: F Lab Order: -Influenza A&B Rapid Antigen - Nose; SPEC'M 05/16/16 08:27 Test: INFLUENZA A RAPID SCR by ICA; Value: INFLUENZA A RESULTS NEGATIVE; Status: F Test: INFLUENZA A RAPID SCR by ICA; Value: Comments:; Status: F Test: INFLUENZA B RAPID SCR by ICA; Value: INFLUENZA B RESULTS NEGATIVE; Status: F Test Note: ; The Influenza test is a direct rapid immunoassay for the qualitative detection of Influenza viral antigen. Cell culture (Viral Culture) testing should be considered to confirm NEGATIVE results and to assist in detecting other viruses that can provide similar clinical symptoms. Please contact the lab within 24 hours ([phone] if confirmatory testing is desired. Lab Order: CARDIAC MARKER PANEL; SPEC'M 05/16/16 13:49 Test: CPK CREATINE PHOSPHOKINASE; Value: 73; Range: 26-192; Units: U/L; Status: F Test: CK-MB VALUE MASS; Value: 1.8; Range: 0.0-3.6; Units: NG/ML; Status: F Test: MB/CK RELATIVE INDEX; Value: 2.46; Range: < OR =4; Status: F Test: TROPONIN I; Value: < 0.02; Range: < 0.10; Units: NG/ML; Status: F Test Note: ; DIAGNOSIS CRITERIA MMB ng/ml Relative Index (RI) NON-AMI < or = 5 N/A DOMINGUEZ ZONE > 5 < or = 4 AMI > 5 > 4 Radiology Order: EKG-ADULT Test: EKG-ADULT REASON FOR EXAMINATION: Shortness of Breath; Stationary ECG Study; [facility] ED; ; Test Date: 2016-05-16; Pat Name: ANUSHA HOGUE Department:; Room: -; Gender: F Contract Officer: [email or web address]; : 1930 Requested By: PACO Moon; Order Number: [id number] Reading MD: Odalis Alas; Measurements; Intervals [place]; Rate: 74 P: 73; MT: 141 QRS: 54; QRSD: 91 T: 50; QT: 395; QTc: 439; Interpretive Statements; SINUS RHYTHM; NSTTW ABNORMALITY; SIMILAR 12/09/13; Electronically Signed On 05-17-2016 8:26:04 EST by Odalis Alas; Radiology Order: Chest, 2 View (pa\E\lat) Test: Chest, 2 View (pa\E\lat) REASON FOR EXAMINATION: Shortness of Breath; TWO VIEW CHEST:; ; Two views of the chest are performed and compared to prior study of 12/09/2013.; ; ; There is mild chronic stable interstitial prominence bilaterally. There is no; acute infiltrate or pulmonary edema. The heart is not enlarged. The mediastinal; silhouette is unchanged. There is some tortuosity of the thoracic aorta. There; is curvature of the thoracic spine convex to the right with diffuse degenerative; changes.; ; IMPRESSION:; ; No acute pulmonary disease.; ; ; Signed by; Rj Dominguez MD 05/16/2016 01:27 P; Radiology Order: ECG WITH READING ER PHYS Test: ECG WITH READING ER PHYS REASON FOR EXAMINATION: SHORTNESS OF BREATH(REPEAT EKG AT 1350); Stationary ECG Study; [facility] ED; ; Test Date: 2016-05-16; Pat Name: ANUSHA HOGUE Department:; Room: -; Gender: F Contract Officer: rn; : 1930 Requested By: PACO Moon; Order Number: [id number] Reading MD: Odalis Alas; Measurements; Intervals [place]; Rate: 70 P: 60; MT: 148 QRS: 43; QRSD: 90 T: 52; QT: 401; QTc: 434; Interpretive Statements; SINUS RHYTHM; NSTTW ABNORMALITY; SIMILAR 05/16/16 8:07; Electronically Signed On 05-17-2016 8:34:35 EST by Odalis Alas; Outcome: 05/16 14:37 Discharge ordered by Provider. br1 14:42 Discharge Assessment: Patient awake, alert and oriented x 3. No cognitive and/or hs1 functional deficits noted. Patient verbalized understanding of disposition instructions. patient administered narcotics - no. The following High Risk Discharge criteria are identified: None. Discharged to home ambulatory. Condition: good. Discharge instructions given to patient, Instructed on discharge instructions, follow up and referral plans. medication usage, Demonstrated understanding of instructions, medications, Pt was receptive of discharge instructions/ teaching. No special radiology studies were completed. Property sent home with patient. 14:43 Patient left the ED. hs1 Signatures: Dispatcher [employer] EDMS Keiry Philip, Fiscal Services Director Unit lbd Tova Monroy, Reg Reg gb Lee Ann Corbett, Reg Reg lg Pepe Velasquez RN Paco Levy MD MD br1 Neetu Newsome RN RN hs1 Nick Hooper PCA PCA jrd Corrections: (The following items were deleted from the chart) 13:05 12:14 Pulse 76bpm; Monitor; Pulse Ox 93%; hs1 hs1 Chart Complete MTDD
--- NOTE | 2016-05-20 09:16 | EDDOCDS ---
Physician Documentation [facility] Name: Madeline Hogue Age: 85 yrs Sex: Female : 1930 Arrival Date: 05/16/2016 Time: 07:51 Bed 11 Private MD: Sara Christianson E Disposition: 05/16/16 14:37 Discharged to Home/Self Care. Impression: Shortness of breath. - Condition is Stable. - Discharge Instructions: Shortness of Breath. - Medication Reconciliation, Local Pharmacy Hours form. - Follow up: Sara Christianson; When: 1 week; Reason: Recheck today's complaints. - Problem is new. - Symptoms are resolved. - Notes: You were seen in the ED for shortness of breath. Bloodwork along with EKG of the heart and chest Xray showed no acute findings. As you are feeling better you may return home to keep your appointment to see Dr. Christianson next week for further evaluation. Please call today to confirm the appointment.
Return to the ED for any return of shortness of breath, chest pain, lightheadedness, loss of consciousness or any other concerns. Historical: - Allergies: SULFA (SULFONAMIDES); Ciprofloxacin; - Home Meds: 1. valsartan 80 mg oral tab 1 tab nightly (Last dose: 05/15/2016) 2. atenolol 25 mg Oral tab 1 tab once daily (Last dose: 05/15/2016) 3. Vitamin D 1000 Oral 1,000 unit 2 tabs in am and 3 tabs in pm (Last dose: 05/15/2016) 4. amlodipine 5 mg Oral tab 1 tab once daily (Last dose: 05/15/2016) 5. Sertraline 100 mg daily (Last dose: 05/15/2016) 6. multivitamin Oral tab 1 tablet daily (Last dose: 05/15/2016) 7. acetaminophen 500 mg Oral cap 2 caps every 6 hours (Last dose: 05/15/2016) 8. metronidazole 0.75 % topical lotn 2 times per day 9. Astepro 0.15 % (205.5 mcg) nasal spry 1 spray 2 times per day - PMHx: Hypertension; Depression; - PSHx: Cholecystectomy; Appendectomy; Tubal ligation; - Social history: Smoking status: Patient states was never smoker of tobacco. No barriers to communication noted, The patient speaks fluent Indonesian, Speaks appropriately for age, Preferred Language: Indonesian. - Family history: Not pertinent. - : The pt / caregiver states he / she is not on anticoagulants. Home medication list is obtained from the patient, Dr Christianson med list from office visit. - Exposure Risk Screening:: None identified. Vital Signs: 05/16 08:07 BP 155 / 67; Pulse 75; Resp 18; Temp 96.2(O); Pulse Ox 96% on R/A; Weight 68.04 kg / hs1 150 lbs; Height 4 ft. 11 in. (149.86 cm); Pain 0/10; 08:21 BP 183 / 75 (auto/); hs1 08:21 Pulse 76 MON; Pulse Ox 95% ; hs1 08:51 BP 138 / 67 (auto/); hs1 08:52 Pulse 72 MON; Pulse Ox 96% ; hs1 09:06 BP 111 / 52 (auto/); hs1 09:07 Pulse 72 MON; Pulse Ox 94% ; hs1 09:21 BP 143 / 65 (auto/); hs1 09:21 Pulse 72 MON; Pulse Ox 93% ; hs1 09:36 BP 157 / 70 (auto/); hs1 09:37 Pulse 80 MON; Pulse Ox 96% ; hs1 09:51 BP 157 / 66 (auto/); hs1 09:51 Pulse 76 MON; Pulse Ox 94% ; hs1 10:31 BP 154 / 63 (auto/); hs1 10:32 Pulse 76 MON; Pulse Ox 94% ; hs1 10:47 BP 131 / 63 (auto/); hs1 10:48 Pulse 76 MON; Pulse Ox 94% ; hs1 11:01 BP 146 / 69 (auto/); hs1 11:01 Pulse 76 MON; Pulse Ox 94% ; hs1 11:14 BP 162 / 70 (auto/); hs1 11:15 Pulse 80 MON; Pulse Ox 95% ; hs1 11:44 BP 133 / 84 (auto/); hs1 11:44 Pulse 72 MON; Pulse Ox 92% ; hs1 12:14 BP 135 / 60 (auto/); hs1 12:14 Pulse 76 MON; Temp 98.5(T); Pulse Ox 93% ; hs1 13:13 Pulse 76 MON; hs1 13:14 BP 125 / 61 (auto/); hs1 13:44 BP 120 / 74 (auto/); hs1 14:13 Pulse 74 MON; Pulse Ox 91% ; hs1 14:14 BP 130 / 60 (auto/); hs1 14:41 BP 130 / 62; Pulse 73; Resp 18; Temp 98.5; Pulse Ox 93% ; Pain 0/10; hs1 08:07 Body Mass Index 30.30 (68.04 kg, 149.86 cm) hs1 MDM: 07:58 Associate Sales Representative/Pulse Ox/q 30 min VS ordered. br1 07:58 IV Saline Lock ordered. br1 07:58 Rhythm Strip to chart ordered. br1 07:58 Undress patient appropriately for examination ordered. br1 07:59 Basic Metabolic Profile Ordered. EDMS 07:59 CBC with Diff Ordered. EDMS 07:59 Cardiac Injury Profile Ordered. EDMS 07:59 Troponin Ordered. EDMS 07:59 ECG WITH READING ER PHYS+CARDIAG ordered. EDMS 08:01 BNP Ordered. EDMS 08:16 -Influenza A&B Rapid Antigen - Nose Ordered. EDMS 08:16 Chest, 2 View (pa\E\lat) Ordered. EDMS 08:25 Financial registration complete. lg 09:01 [facility] Payment Agreement was scanned into [employer] and attached to record. lg 09:54 REGULAR+DIET ordered. EDMS 10:21 Basic Metabolic Profile Reviewed. br1 10:21 CBC with Diff Reviewed. br1 10:21 BNP Reviewed. br1 10:21 Cardiac Injury Profile Reviewed. br1 10:21 Troponin Reviewed. br1 10:21 -Influenza A&B Rapid Antigen - Nose Reviewed. br1 10:24 Ambulate Patient wt Pulse Oximetry ordered. br1 10:43 Repeat EKG (put time details section) ordered. br1 10:43 Redraw CIP &Troponin (put time in details section) ordered. br1 10:46 Repeat EKG (put time details section) complete. lbd 10:46 Redraw CIP &Troponin (put time in details section) complete. lbd 10:49 CARDIAC MARKER PANEL Ordered. EDMS 10:50 ECG WITH READING ER PHYS ordered. EDMS 11:27 REGULAR+DIET ordered. EDMS 14:26 CARDIAC MARKER PANEL Reviewed. br1 14:26 Chest, 2 View (pa\E\lat) Reviewed. br1 05/17 09:01 T-Sheet-- Draft Copy was scanned into MED[employer] and attached to record. gb 09:01 ECG/EKG was scanned into MED[employer] and attached to record. gb 09:01 Radiology Report was scanned into MED[employer] and attached to record. gb 12:54 PCR was scanned into MED[employer] and attached to record. gb Signatures: Dispatcher [employer] EDMS Keiry Philip, [employer] Functional Analyst Unit lbd Tova Monroy, Reg Reg gb Lee Ann Corbett, Reg Reg lg Paco Guzman MD MD br1 Neetu Newsome, RN RN hs1 The chart was reviewed and I authenticate all verbal orders and agree with the evaluation and treatment provided.Attachments: 05/16 09:01 [facility] lg 05/17 09:01 T-Sheet-- Draft Copy gb 09:01 ECG/EKG gb Chart Complete MTDD
== END 2016-05-16 14:43 | disposition home or self-care (01) ==
LOC: M ED 07:51
DX: R06.02 Shortness of breath (principal); I10 Essential (primary) hypertension; F32.9 Major depressive disorder, single episode, unspecified; Z79.899 Other long term (current) drug therapy; Z88.2 Allergy status to sulfonamides; Z88.1 Allergy status to other antibiotic agents

== ENCOUNTER → 2016-10-13 | Outpatient (REF) | payer MEDICARE | LOC: M LAB REF 10:08 | PROVIDERS: ATTEND Physician Assistant | DX: R30.0 Dysuria (principal) ==

== ENCOUNTER → 2017-01-28 | Outpatient (REF) | payer MEDICARE ==
[2017-01-28 14:22] LABS: PERCENT SATURATION 21.6 % (13.2-45.0)
== END ==
LOC: M LAB REF 12:55
PROVIDERS: ATTEND Internal Medicine
DX: R53.83 Other fatigue (principal)

== ENCOUNTER 2017-04-19 05:17 | Emergency (ER) | payer MEDICARE ==
[~2017-04-19] VITALS: Ht 149.9 cm; Wt 68.2 kg
[2017-04-19] MEDS ORDERED: FURO20TA2 (05:40)
[2017-04-19] MEDS ORDERED: RANI150T (05:40)
[2017-04-19] MEDS ORDERED: VALS1TAB46 (05:40)
[2017-04-19] MEDS ORDERED: METO1TAB87 (05:40)
[2017-04-19] MEDS ORDERED: AZEL0.055 (05:40)
[2017-04-19] MEDS ORDERED: SERT-138 (05:40)
[2017-04-19] MEDS ORDERED: AMLO5TAB2 (05:40)
[2017-04-19 06:13] LABS: BASO # 0.1 10^3/uL (0.0-0.2); BASO % 0.5 % (0.0-1.0); EOS # 0.1 10^3/uL (0.0-0.50); EOS % 0.5 % (0.0-3.0); IMMATURE GRANULOCYTE % 0.8 % (0-0); LYMPH # 1.4 10^3/uL (1.5-4.5); MEAN CORPUSCULAR HEMOGLOBIN 28.5 pg (27.0-33.0); MEAN CORPUSCULAR HGB CONC 34.4 g/dl (32.0-36.5); MEAN CORPUSCULAR VOLUME 82.6 fl (80.0-96.0); MONO # 0.5 10^3/uL (0.0-0.8); MONO % 5.3 % (0.0-5.0); NEUTROPHILS % 78.9 % (36.0-66.0); PLATELET COUNT, AUTOMATED 184 10^3/uL (150-450); WHITE BLOOD COUNT 10.2 10^3/uL (4.0-10.0)
[2017-04-19 06:17] LABS: INR 1.08
[2017-04-19 06:25] LABS: ANION GAP 10 MEQ/L (8-16); BLOOD UREA NITROGEN 19 MG/DL (7-18); CALCIUM LEVEL 9.1 MG/DL (8.8-10.2); CARBON DIOXIDE LEVEL 26 MEQ/L (21-32); CHLORIDE LEVEL 103 MEQ/L (98-107); CREATININE FOR GFR 0.95 MG/DL (0.55-1.02); GLOMERULAR FILTRATION RATE 59.5 (>32); GLUCOSE, FASTING 138 MG/DL (83-110); POTASSIUM SERUM 4.2 MEQ/L (3.5-5.1); SODIUM LEVEL 139 MEQ/L (136-145)
[2017-04-19] MEDS ORDERED: METOPROLOL TART 25 MG TABLET PO ONE (08:30)
[2017-04-19] MEDS ORDERED: amLODIPine 5 MG TAB PO ONE (08:30)
[2017-04-19 08:35] VITALS: BP 142/79
--- NOTE | 2017-04-19 08:39 | ECGEPIP ---
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
--- NOTE | 2017-04-19 09:31 | REP ---
REASON: Chest pain. COMPARISON: 05/16/2016. The technique utilized in obtaining the radiograph has magnified the cardiac silhouette and accentuated the interstitial markings. FINDINGS: The superior mediastinal structures are midline. The cardiac silhouette is unremarkable in size, shape, and position. The diaphragmatic surfaces of the lungs are regular, and the costophrenic angles are clear. The pulmonary avalos are clear. The imaged osseous structures are intact. IMPRESSION: There is no acute cardiopulmonary disease. No change from the prior exam. Signed by Nathaniel Ledbetter DO 04/19/2017 09:32 A
[2017-04-19 10:13] VITALS: BP 130/63
--- NOTE | 2017-04-19 18:11 | ECGEPIP ---
Stationary ECG Study [facility] - ED Test Date: 2017-04-19 Pat Name: ANUSHA ALVARENGA Department: Room: - Gender: F Hide Paster: sb : 1930 Requested By: ROSA M CARLTON Order Number: [id number] Reading MD: Edward Bob Measurements Intervals [place] Rate: 71 P: 66 [place]: 153 QRS: 54 QRSD: 94 T: 64 QT: 401 QTc: 438 Interpretive Statements SINUS RHYTHM WITH OCCASIONAL SUPRAVENTRICULAR PREMATURE COMPLEXES POSSIBLE INFERIOR MYOCARDIAL INFARCTION, OF INDETERMINATE AGE SIMILAR TO PRIOR ON SAME DATE Electronically Signed On 04-19-2017 18:11:34 EST by Edward Bob
== END 2017-04-19 10:55 | disposition home or self-care (01) ==
LOC: EDBD 05:17 → M ED 05:17 → EDSEX 05:17 → M ED 10:55
DX: R07.89 Other chest pain (principal); F41.9 Anxiety disorder, unspecified; I10 Essential (primary) hypertension; K21.9 Gastro-esophageal reflux disease without esophagitis; Z79.899 Other long term (current) drug therapy; Z88.8 Allergy status to other drugs, medicaments and biological substances; Z88.1 Allergy status to other antibiotic agents; Z88.2 Allergy status to sulfonamides

== ENCOUNTER → 2017-05-14 | Outpatient (REF) | payer MEDICARE ==
[2017-05-14 12:42] LABS: BASO # 0.1 10^3/uL (0.0-0.2); BASO % 0.4 % (0.0-1.0); EOS % 0.1 % (0.0-3.0); HEMATOCRIT 40.5 % (36.0-47.0); HEMOGLOBIN 13.7 g/dl (12.0-16.0); IMMATURE GRANULOCYTE # 0.1 10^3/uL (0-0); IMMATURE GRANULOCYTE % 0.8 % (0-0); LYMPH # 1.4 10^3/uL (1.5-4.5); LYMPH % 9.7 % (24.0-44.0); MEAN CORPUSCULAR HGB CONC 33.8 g/dl (32.0-36.5); MEAN CORPUSCULAR VOLUME 82.8 fl (80.0-96.0); MONO # 0.8 10^3/uL (0.0-0.8); MONO % 5.8 % (0.0-5.0); NEUTROPHILS % 83.2 % (36.0-66.0); PLATELET COUNT, AUTOMATED 200 10^3/uL (150-450); RED BLOOD COUNT 4.89 10^6/uL (4.00-5.40); RED CELL DISTRIBUTION WIDTH 14.3 % (11.5-14.5); WHITE BLOOD COUNT 14.5 10^3/uL (4.0-10.0)
[2017-05-14 12:48] LABS: ANION GAP 6 MEQ/L (8-16); BLOOD UREA NITROGEN 17 MG/DL (7-18); CALCIUM LEVEL 9.7 MG/DL (8.8-10.2); CARBON DIOXIDE LEVEL 30 MEQ/L (21-32); CHLORIDE LEVEL 101 MEQ/L (98-107); CREATININE FOR GFR 0.84 MG/DL (0.55-1.02); GLOMERULAR FILTRATION RATE > 60.0 (>32); GLUCOSE, FASTING 111 MG/DL (83-110); POTASSIUM SERUM 4.4 MEQ/L (3.5-5.1); SODIUM LEVEL 137 MEQ/L (136-145)
[2017-05-14 13:04] LABS: APPEARANCE, URINE MANUAL CLOUDY (CLEAR); COLOR, URINE MANUAL RED (YELLOW)
[2017-05-14 13:06] LABS: GLUCOSE, URINE (UA) MANUAL 1+(100 MG/DL) mg/dL (NEGATIVE)
[2017-05-14 13:07] LABS: BLOOD URINE MANUAL POSITIVE (NEGATIVE); LEUKOCYTE ESTERASE, URINE MAN POSITIVE (NEGATIVE); NITRITE, URINE MANUAL OBSCURED (NEGATIVE)
[2017-05-14 13:13] LABS: BILIRUBIN, URINE MANUAL NEGATIVE (NEGATIVE); KETONE, URINE MANUAL NEGATIVE (NEGATIVE); UROBILINOGEN, URINE MANUAL NORMAL (NORMAL)
[2017-05-14 13:14] LABS: MICROSCOPIC INDICATED? MAN YES (NO); PROTEIN, URINE MANUAL 2+ mg/dL (NEGATIVE)
[2017-05-14 13:16] LABS: RBC, URINE TNTC /hpf (0-3); SQUAMOUS EPITHELIAL CELL URINE SMALL AMOUNT /hpf (SMALL AMT); WBC, URINE 15-20 /hpf (0-3)
[2017-05-14 13:17] LABS: BACTERIA, URINE SMALL AMOUNT; HYALINE CAST, URINE NONE SEEN /lpf (0-1); MICROSCOPIC EXAM PERFORMED
== END ==
LOC: M LABDRWAD 12:14
DX: R31.0 Gross hematuria (principal)
CPT/HCPCS: 80048

== ENCOUNTER → 2017-05-20 | Outpatient (CLI) | payer MEDICARE ==
[2017-05-20 13:14] LABS: BASO % 0.4 % (0.0-1.0); EOS # 0.1 10^3/uL (0.0-0.50); EOS % 1.4 % (0.0-3.0); HEMATOCRIT 38.3 % (36.0-47.0); HEMOGLOBIN 12.9 g/dl (12.0-16.0); IMMATURE GRANULOCYTE # 0.1 10^3/uL (0-0); IMMATURE GRANULOCYTE % 0.5 % (0-0); LYMPH # 1.6 10^3/uL (1.5-4.5); LYMPH % 17.9 % (24.0-44.0); MEAN CORPUSCULAR HEMOGLOBIN 28.2 pg (27.0-33.0); MEAN CORPUSCULAR HGB CONC 33.7 g/dl (32.0-36.5); MEAN CORPUSCULAR VOLUME 83.8 fl (80.0-96.0); MONO # 0.6 10^3/uL (0.0-0.8); NEUTROPHILS # 6.6 10^3/uL (1.8-7.7); NEUTROPHILS % 72.8 % (36.0-66.0); PLATELET COUNT, AUTOMATED 177 10^3/uL (150-450); RED BLOOD COUNT 4.57 10^6/uL (4.00-5.40); RED CELL DISTRIBUTION WIDTH 14.3 % (11.5-14.5); WHITE BLOOD COUNT 9.1 10^3/uL (4.0-10.0)
== END ==
LOC: M ADAMS 11:30
DX: N39.0 Urinary tract infection, site not specified (principal)
CPT/HCPCS: 85025

== ENCOUNTER → 2017-07-16 | Outpatient (REF) | payer MEDICARE ==
[2017-07-16 20:56] LABS: ALBUMIN 4.4 GM/DL (3.2-5.2); ALBUMIN/GLOBULIN RATIO 1.29 (1.00-1.93); ALKALINE PHOSPHATASE 126 U/L (45-117); ALT/SGPT 104 U/L (12-78); ANION GAP 7 MEQ/L (8-16); AST/SGOT 38 U/L (7-37); BILIRUBIN,TOTAL 0.4 MG/DL (0.2-1.0); BLOOD UREA NITROGEN 20 MG/DL (7-18); CALCIUM LEVEL 9.4 MG/DL (8.8-10.2); CARBON DIOXIDE LEVEL 30 MEQ/L (21-32); CHLORIDE LEVEL 102 MEQ/L (98-107); GLOMERULAR FILTRATION RATE > 60.0 (>32); GLUCOSE, FASTING 108 MG/DL (70-100); SODIUM LEVEL 139 MEQ/L (136-145); TOTAL PROTEIN 7.8 GM/DL (6.4-8.2)
[2017-07-16 21:14] LABS: BASO % 0.4 % (0.0-1.0); EOS # 0.1 10^3/uL (0.0-0.50); EOS % 0.5 % (0.0-3.0); HEMATOCRIT 41.8 % (36.0-47.0); IMMATURE GRANULOCYTE % 0.7 % (0-3.0); LYMPH # 1.3 10^3/uL (1.5-4.5); LYMPH % 11.5 % (24.0-44.0); MEAN CORPUSCULAR HEMOGLOBIN 27.5 pg (27.0-33.0); MEAN CORPUSCULAR HGB CONC 33.5 g/dl (32.0-36.5); MEAN CORPUSCULAR VOLUME 82.1 fl (80.0-96.0); MONO # 0.5 10^3/uL (0.0-0.8); MONO % 4.7 % (0.0-5.0); NEUTROPHILS # 9.2 10^3/uL (1.8-7.7); NEUTROPHILS % 82.2 % (36.0-66.0); PLATELET COUNT, AUTOMATED 200 10^3/uL (150-450); RED BLOOD COUNT 5.09 10^6/uL (4.00-5.40); WHITE BLOOD COUNT 11.2 10^3/uL (4.0-10.0)
== END ==
LOC: M LAB REF 09:25
DX: R31.0 Gross hematuria (principal)
CPT/HCPCS: 80053

== ENCOUNTER → 2017-10-15 | Outpatient (CLI) | payer MEDICARE | LOC: M RAD 13:06 | DX: Z01.818 Encounter for other preprocedural examination (principal); D49.4 Neoplasm of unspecified behavior of bladder; N39.0 Urinary tract infection, site not specified | CPT/HCPCS: 71046 ==

== ENCOUNTER → 2017-10-15 | Outpatient (REF) | payer MEDICARE ==
[2017-10-15 18:52] LABS: INR 1.06; PROTHROMBIN TIME 13.9 SECONDS (12.4-14.5)
== END ==
LOC: M LAB REF 16:54
DX: Z01.818 Encounter for other preprocedural examination (principal); N39.0 Urinary tract infection, site not specified; D49.9 Neoplasm of unspecified behavior of unspecified site

== ENCOUNTER 2017-10-23 08:20 | Day surgery (SDC) | payer MEDICARE ==
[2017-10-23] MEDS ORDERED: LIDOCAINE 1% MDV 20ML VIAL SQ (08:30)
[2017-10-23] MEDS ORDERED: LR 1,000 ML IV ×2 (08:30→12:15)
[2017-10-23] MEDS ORDERED: ONDANSETRON 4MG/2ML VIAL (J2405) As Ordered (09:59)
[2017-10-23] MEDS ORDERED: PROPOFOL 200 MG/20 ML VIAL As Ordered ×2 (09:59→10:05)
[2017-10-23] MEDS ORDERED: METOCLOPRAMIDE INJ 10MG/2ML VIAL (J2765) As Ordered (09:59)
[2017-10-23] MEDS ORDERED: MIDAZOLAM INJ 2 MG/2 ML VIAL (J2250) As Ordered (09:59)
[2017-10-23] MEDS ORDERED: dexameTHASONE 4 MG/ML 1ML VIAL (J1100) As Ordered (09:59)
[2017-10-23] MEDS ORDERED: fentaNYL 100 MCG/2 ML INJECTION (J3010) As Ordered (09:59)
[2017-10-23] MEDS ORDERED: ROCURONIUM BROMIDE 50 MG/5 ML VIAL As Ordered (10:05)
[2017-10-23] MEDS: CONRAY-60 60% 50ML VIAL (Q9961) As Ordered (11:11)
[2017-10-23] MEDS ORDERED: GLYCOPYRROLATE INJ 0.2 MG/ML 2 ML VIAL As Ordered (11:25)
[2017-10-23] MEDS ORDERED: NEOSTIGMINE 10 MG/10 ML VIAL (J2710) As Ordered (11:25)
[2017-10-23] MEDS ORDERED: fentaNYL 100 MCG/2 ML INJECTION (J3010) IV (12:15)
[2017-10-23] MEDS ORDERED: PERCOCET 5MG/325MG TAB PO (12:15)
[2017-10-23] MEDS ORDERED: ONDANSETRON 4MG/2ML VIAL (J2405) IV (12:15)
[2017-10-23] MEDS ORDERED: ACETAMINOPHEN TAB 650MG DOSE (2X325MG) PO (12:15)
== END 2017-10-23 15:00 | disposition home or self-care (01) ==
LOC: M SDC 08:20
DX: C67.9 Malignant neoplasm of bladder, unspecified (principal); I10 Essential (primary) hypertension; K21.9 Gastro-esophageal reflux disease without esophagitis; D64.9 Anemia, unspecified; R06.02 Shortness of breath; Z79.899 Other long term (current) drug therapy; F41.9 Anxiety disorder, unspecified; F32.9 Major depressive disorder, single episode, unspecified
CPT/HCPCS: 52240

== ENCOUNTER 2018-01-18 10:03 | Emergency (ER) | payer MEDICARE ==
[2018-01-18 11:13] LABS: BASO % 0.4 % (0.0-1.0); EOS # 0.1 10^3/uL (0.0-0.50); EOS % 0.7 % (0.0-3.0); HEMATOCRIT 38.3 % (36.0-47.0); IMMATURE GRANULOCYTE % 0.8 % (0-3.0); LYMPH # 1.2 10^3/uL (1.5-4.5); LYMPH % 11.4 % (24.0-44.0); MEAN CORPUSCULAR HEMOGLOBIN 27.8 pg (27.0-33.0); MEAN CORPUSCULAR HGB CONC 33.9 g/dl (32.0-36.5); MONO # 0.7 10^3/uL (0.0-0.8); MONO % 6.8 % (0.0-5.0); NEUTROPHILS # 8.6 10^3/uL (1.8-7.7); NEUTROPHILS % 79.9 % (36.0-66.0); PLATELET COUNT, AUTOMATED 171 10^3/uL (150-450); RED BLOOD COUNT 4.67 10^6/uL (4.00-5.40); RED CELL DISTRIBUTION WIDTH 14.6 % (11.5-14.5); WHITE BLOOD COUNT 10.8 10^3/uL (4.0-10.0)
[2018-01-18 11:45] LABS: BLOOD UREA NITROGEN 17 MG/DL (7-18); CALCIUM LEVEL 9.3 MG/DL (8.8-10.2); CHLORIDE LEVEL 102 MEQ/L (98-107); CPK CREATINE PHOSPHOKINASE 84 U/L (26-192); CREATININE FOR GFR 0.86 MG/DL (0.55-1.30); GLOMERULAR FILTRATION RATE > 60.0 (>32); GLUCOSE, FASTING 96 MG/DL (70-100); POTASSIUM SERUM 4.8 MEQ/L (3.5-5.1); SODIUM LEVEL 136 MEQ/L (136-145); TROPONIN I < 0.02 NG/ML (< 0.10)
[2018-01-18 11:50] LABS: CK-MB VALUE MASS 1.6 NG/ML (<3.6)
[2018-01-18 12:05] LABS: CARBON DIOXIDE LEVEL 28 MEQ/L (21-32)
[2018-01-18 12:12] LABS: ANION GAP 6 MEQ/L (8-16)
[2018-01-18 12:14] LABS: MB/CK RELATIVE INDEX 0.02 (< OR =4)
== END 2018-01-18 13:03 | disposition home or self-care (01) ==
LOC: M ED 10:03
DX: R53.83 Other fatigue (principal); F41.8 Other specified anxiety disorders; I10 Essential (primary) hypertension; E78.5 Hyperlipidemia, unspecified
CPT/HCPCS: 71046

== ENCOUNTER → 2018-01-26 | Outpatient (REF) | payer MEDICARE | LOC: M LAB REF 17:05 | DX: R30.0 Dysuria (principal) | CPT/HCPCS: 87086 ==

== ENCOUNTER → 2018-02-09 | Outpatient (REF) | payer MEDICARE | LOC: M SMT 13:28 | DX: C67.9 Malignant neoplasm of bladder, unspecified (principal) | CPT/HCPCS: 88108 ==

== ENCOUNTER → 2018-05-21 | Outpatient (REF) | payer MEDICARE ==
[~2018-05-21] MED LIST: AMLO5TAB6; AZEL0.055; FURO20TA2; METO1TAB87; MULT1CHW41 PO; MULT1TAB10 PO; RANI150T; SERT-138; VALS1TAB46; VITA100067 PO
== END ==
LOC: M SMT 17:08
PROVIDERS: ATTEND Urology
DX: C67.9 Malignant neoplasm of bladder, unspecified (principal)

== ENCOUNTER → 2018-09-20 | Outpatient (REF) | payer MEDICARE ==
[~2018-09-20] MED LIST changes: +ASTE0.15; +D-10TAB2 PO; +LASI20TA3 PO; +LOSA50TA88 PO; -MULT1CHW41 PO; -VALS1TAB46; +VALS1TAB66; +VITA100054 PO; +ZANTTAB PO; +[UNRECOGNIZED DRUG - CODE] PO
== END ==
LOC: M SMT 13:30
PROVIDERS: ATTEND Urology
DX: C67.9 Malignant neoplasm of bladder, unspecified (principal)

== ENCOUNTER → 2018-10-05 | Outpatient (CLI) | payer MEDICARE ==
[2018-10-05 10:28] LABS: HEMATOCRIT 38.3 % (36.0-47.0); HEMOGLOBIN 12.9 g/dl (12.0-15.5); MEAN CORPUSCULAR HEMOGLOBIN 28.2 pg (27.0-33.0); MEAN CORPUSCULAR HGB CONC 33.7 g/dl (32.0-36.5); MEAN CORPUSCULAR VOLUME 83.8 fl (80.0-96.0); PLATELET COUNT, AUTOMATED 164 10^3/uL (150-450); RED BLOOD COUNT 4.57 10^6/uL (4.00-5.40); WHITE BLOOD COUNT 9.4 10^3/uL (4.0-10.0)
[2018-10-05 10:38] LABS: INR 1.11; PROTHROMBIN TIME 14.4 SECONDS (12.1-14.4)
[2018-10-05 10:39] LABS: PARTIAL THROMBOPLASTIN TIME 31.9 SECONDS (25.4-37.6)
[2018-10-05 10:55] LABS: CALCIUM LEVEL 9.3 MG/DL (8.8-10.2); CREATININE FOR GFR 0.97 MG/DL (0.55-1.30); GLOMERULAR FILTRATION RATE 57.8 (>32); POTASSIUM SERUM 4.2 MEQ/L (3.5-5.1)
--- NOTE | 2018-10-05 12:41 | REP ---
CHEST X-RAY: Two views. HISTORY: Bladder cancer. Preoperative testing. COMPARISON CHEST X-RAY: January 18, 2018. FINDINGS: An azygos lobe and thoracic scoliosis are again seen unchanged. Borderline heart size is noted with a cardiothoracic ratio measuring 48.4%. Thoracic aorta is tortuous as before. Pulmonary vasculature is not increased. No infiltrate is seen. Pleural angles are sharp. There are clips in right upper quadrant of the abdomen. IMPRESSION: Scoliosis. Mildly prominent heart. Otherwise no acute disease. Electronically Signed by Benjie Cook MD 10/05/2018 04:14 P
--- NOTE | 2018-10-06 09:37 | ECGEPIP ---
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 No significant change compared with 01/18/2018 at 10:30 AM. Electronically Signed on 10-06-2018 9:37:28 EDT by Pepe Concepcion
== END ==
LOC: M LAB 09:37
PROVIDERS: ATTEND Urology
DX: Z01.818 Encounter for other preprocedural examination (principal); C67.9 Malignant neoplasm of bladder, unspecified; N39.0 Urinary tract infection, site not specified; Z79.899 Other long term (current) drug therapy

== ENCOUNTER 2018-10-14 06:44 | Day surgery (SDC) | payer MEDICARE ==
[~2018-10-14] VITALS: Ht 149.9 cm; Wt 69.4 kg
[~2018-10-14 06:44] MED LIST changes: +LR 1,000 ML IV ONE; +mitoMYcin 40MG VIAL (J9280 PER 5MG) INTRAVESIC ONE
[2018-10-14] MEDS ORDERED: mitoMYcin 40MG VIAL (J9280 PER 5MG) INTRAVESIC ONE (08:00)
[2018-10-14] MEDS ORDERED: LR 1,000 ML IV ONE (08:15)
[2018-10-14] MEDS ORDERED: ONDANSETRON 4MG/2ML VIAL (J2405) As Ordered ONE (08:21)
[2018-10-14] MEDS ORDERED: fentaNYL 100 MCG/2 ML INJECTION (J3010) As Ordered ONE (08:21)
[2018-10-14] MEDS ORDERED: dexameTHASONE 4 MG/ML 1ML VIAL (J1100) As Ordered ONE (08:21)
[2018-10-14] MEDS ORDERED: LIDOCAINE 2% INJ 100 MG/5 ML SDV (FOR ANES.) As Ordered ONE (08:21)
[2018-10-14] MEDS ORDERED: ROCURONIUM BROMIDE 50 MG/5 ML VIAL As Ordered ONE (08:21)
[2018-10-14] MEDS ORDERED: PROPOFOL 200 MG/20 ML VIAL As Ordered ONE (08:21)
[2018-10-14] MEDS ORDERED: ACETAMINOPHEN 1000MG 100ML IV BTL (OFIRMEV) (J0131 PER 10MG) As Ordered ONE (09:16)
[2018-10-14] MEDS ORDERED: SUGAMMADEX SODIUM 500 MG/5 ML VIAL (BRIDION) As Ordered ONE (09:17)
--- NOTE | 2018-10-14 10:02 | RO ---
DATE OF PROCEDURE: 10/14/2018 PREPROCEDURE DIAGNOSIS: Bladder cancer. POSTPROCEDURE DIAGNOSIS: Bladder cancer. PROCEDURE: Cystoscopy, transurethral resection of bladder tumor (less than 2 cm), intravesical mitomycin C installation. SURGEON: Dr. Torsten Howard DAY GUARD: None. ANESTHESIA: General. OPERATIVE INDICATIONS: This is an 88-year-old female with a history of high grade Ta bladder cancer who on recent office cystoscopy was found to have two to three small papillary tumors. She was brought to the operating room today for the above listed procedures. DESCRIPTION OF PROCEDURE: The patient was brought to the operating room where general anesthesia was induced. Prophylactic antibiotics were infused. She was then placed in dorsal lithotomy position and prepped and draped in the usual sterile fashion. A resectoscope was inserted into the urethral meatus and advanced to the bladder using visual obturator. Once inside the bladder, it was thoroughly examined and of note she had two definite papillary tumors seen, with one at the base and the other on the anterior wall, as well as, one to two additional suspicious areas. The areas that looked like definite tumors were resected using a loop. The base of resections was cauterized using a coagulation current. The other suspicious areas were fulgurated using coagulation current. Once satisfied with hemostasis, the bladder tumors were removed from the bladder and sent for pathologic analysis. Once that was done, an 18 [place] 3-way catheter was inserted into the bladder and the balloon was filled with 30 mL of sterile water. The irrigation port was hooked up to a saline bag and that was clamped off. I then instilled 40 mg of mitomycin C into the bladder gently. Once that was done, the catheter plug was placed inside the catheter with the plan to leave the mitomycin C in the bladder for about an hour. This marked the conclusion of the procedure. The patient was then taken out of the dorsal lithotomy position, awakened from anesthesia and transported to the recovery room in stable condition. Estimated blood loss: 5 mL. Complications: None. Specimen: Bladder tumors. Plan: The patient will keep the mitomycin C in the bladder for an hour and then it will drain out. Will then wash the bladder out with a liter of saline. She will be sent home with a catheter with a plan to followup in the clinic next week for catheter removal and to discuss pathology results.
[2018-10-14] MEDS ORDERED: ONDANSETRON 4MG/2ML VIAL (J2405) IV PRN (10:30)
[2018-10-14] MEDS ORDERED: fentaNYL 100 MCG/2 ML INJECTION (J3010) IV PRN (10:30)
[2018-10-14] MEDS ORDERED: LR 1,000 ML IV SCH (10:30)
[2018-10-14] MEDS ORDERED: ACETAMINOPHEN TAB 650MG DOSE (2X325MG) PO PRN (10:30)
[2018-10-14] MEDS ORDERED: NORCO, ANEXSIA 5/325MG TABLET (HYDROcodone/ACETAMINOPHEN) PO PRN (10:30)
[2018-10-14 12:00] VITALS: BP 136/61
== END 2018-10-14 12:40 | disposition home or self-care (01) ==
LOC: M SDC 06:44
PROVIDERS: ATTEND Urology
DX: C67.9 Malignant neoplasm of bladder, unspecified (principal); I11.9 Hypertensive heart disease without heart failure; I50.30 Unspecified diastolic (congestive) heart failure; E78.00 Pure hypercholesterolemia, unspecified; F41.1 Generalized anxiety disorder; F32.9 Major depressive disorder, single episode, unspecified; R10.13 Epigastric pain; K21.9 Gastro-esophageal reflux disease without esophagitis; R60.0 Localized edema; R29.898 Other symptoms and signs involving the musculoskeletal system; M12.9 Arthropathy, unspecified; R06.02 Shortness of breath; R31.9 Hematuria, unspecified; Z88.1 Allergy status to other antibiotic agents; Z88.2 Allergy status to sulfonamides; Z79.899 Other long term (current) drug therapy; Z98.51 Tubal ligation status; Z96.1 Presence of intraocular lens
CPT/HCPCS: 51720; 52234; 88307; J0131; J0690; J1100; J2405; J3010; J9280

== ENCOUNTER → 2018-10-29 | Outpatient (REF) | payer MEDICARE ==
[~2018-10-29] MED LIST changes: -LR 1,000 ML IV ONE; -mitoMYcin 40MG VIAL (J9280 PER 5MG) INTRAVESIC ONE
== END ==
LOC: M LAB REF 15:31
PROVIDERS: ATTEND Internal Medicine
DX: R06.02 Shortness of breath (principal)

== ENCOUNTER → 2019-04-25 | Outpatient (REF) | payer MEDICARE ==
[~2019-04-25] MED LIST changes: +TOPR50TA PO; +ZANT150T40 PO; -ZANTTAB PO
== END ==
LOC: M SMT 12:44
PROVIDERS: ATTEND Urology
DX: C67.9 Malignant neoplasm of bladder, unspecified (principal)

== ENCOUNTER 2019-05-06 00:28 | Emergency (ER) | payer MEDICARE ==
[~2019-05-06] VITALS: Ht 149.9 cm; Wt 68.2 kg
[~2019-05-06 00:28] MED LIST changes: -TOPR50TA PO
[2019-05-06] MEDS: METOPROLOL 5 MG/5 ML VIAL IV SCH ×6 (01:37→05:00)
[2019-05-06 01:38] LABS: BASO # 0.1 10^3/uL (0.0-0.2); BASO % 0.5 % (0.0-1.0); EOS # 0.1 10^3/uL (0.0-0.5); EOS % 0.8 % (0.0-3.0); HEMATOCRIT 44.8 % (36.0-47.0); HEMOGLOBIN 14.6 g/dl (12.0-15.5); LYMPH % 8.6 % (24.0-44.0); MEAN CORPUSCULAR HEMOGLOBIN 26.8 pg (27.0-33.0); MEAN CORPUSCULAR HGB CONC 32.6 g/dl (32.0-36.5); MEAN CORPUSCULAR VOLUME 82.2 fl (80.0-96.0); MONO # 0.6 10^3/uL (0.0-0.8); MONO % 4.9 % (0.0-5.0); NEUTROPHILS # 9.4 10^3/uL (1.5-8.5); NEUTROPHILS % 84.5 % (36.0-66.0); PLATELET COUNT, AUTOMATED 169 10^3/uL (150-450); RED BLOOD COUNT 5.45 10^6/uL (4.00-5.40); WHITE BLOOD COUNT 11.2 10^3/uL (4.0-10.0)
[2019-05-06 02:05] LABS: BLOOD UREA NITROGEN 21 MG/DL (7-18); CALCIUM LEVEL 9.8 MG/DL (8.8-10.2); CARBON DIOXIDE LEVEL 27 MEQ/L (21-32); CHLORIDE LEVEL 100 MEQ/L (98-107); CK-MB VALUE MASS 2.3 NG/ML (<3.6); CPK CREATINE PHOSPHOKINASE 84 U/L (26-192); CREATININE FOR GFR 1.01 MG/DL (0.55-1.30); FREE T4 1.18 NG/DL (0.76-1.46); GLOMERULAR FILTRATION RATE 55.2 (>32); GLUCOSE, FASTING 136 MG/DL (70-100); MAGNESIUM LEVEL 2.3 MG/DL (1.8-2.4); MB/CK RELATIVE INDEX 2.74 (< OR =4); POTASSIUM SERUM 4.2 MEQ/L (3.5-5.1); SODIUM LEVEL 135 MEQ/L (136-145); TROPONIN I < 0.02 NG/ML (< 0.10)
[2019-05-06] MEDS ORDERED: METOPROLOL TART 25 MG TABLET PO ONE (02:45)
[2019-05-06 05:04] LABS: MB/CK RELATIVE INDEX 2.82 (< OR =4); TROPONIN I 0.02 NG/ML (< 0.10)
[2019-05-06] MEDS ORDERED: TOPR50TA PO (05:37)
[2019-05-06] MEDS ORDERED: METOPROLOL SUCC *XL* 25MG TAB (TopROL *XL*) PO ONE (05:45)
[2019-05-06 06:23] VITALS: BP 153/73
[2019-05-06 06:30] VITALS: BP 148/75
--- NOTE | 2019-05-06 08:00 | REP ---
Clinical: Chest pain . Comparison: 01/11/2019 . Findings: The mediastinum and cardiac silhouette are stable and within normal limits for portable technique. The lung avalos demonstrate chronic changes without acute consolidation, effusion, or pneumothorax. Skeletal structures are intact. Impression: No acute cardiopulmonary process appreciated. Electronically Signed by Noah Giraldo MD 05/06/2019 07:46 A
--- NOTE | 2019-05-08 14:49 | ECGEPIP ---
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
--- NOTE | 2019-05-08 14:53 | ECGEPIP ---
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
== END 2019-05-06 06:35 | disposition home or self-care (01) ==
LOC: M ED 00:28
DX: I48.91 Unspecified atrial fibrillation (principal); R00.0 Tachycardia, unspecified; I11.0 Hypertensive heart disease with heart failure; I50.9 Heart failure, unspecified; F41.1 Generalized anxiety disorder; Z88.2 Allergy status to sulfonamides; Z88.1 Allergy status to other antibiotic agents; Z88.8 Allergy status to other drugs, medicaments and biological substances; Z79.899 Other long term (current) drug therapy

== ENCOUNTER → 2019-06-14 | Outpatient (REF) | payer MEDICARE ==
[~2019-06-14] MED LIST changes: +TOPR50TA PO
== END ==
LOC: M LAB REF 09:37
PROVIDERS: ATTEND Dermatology
DX: C44.41 Basal cell carcinoma of skin of scalp and neck (principal); D23.30 Other benign neoplasm of skin of unspecified part of face
CPT/HCPCS: 11102; 11103; 17000; 88305; G0463

== ENCOUNTER → 2019-07-13 | Outpatient (REF) | payer MEDICARE | LOC: M LAB REF 09:21 | PROVIDERS: ATTEND Dermatology | DX: C44.320 Squamous cell carcinoma of skin of unspecified parts of face (principal) ==

== ENCOUNTER → 2020-01-10 | Outpatient (REF) | payer MEDICARE ==
[~2020-01-10] MED LIST changes: +AMLO1TAB24; -AMLO5TAB6
[2020-01-10 20:54] LABS: FERRITIN 131 NG/ML (8-252); IRON (FE) 53 UG/DL (50-170); PERCENT SATURATION 14.3 % (13.2-45.0); TOTAL IRON BINDING CAPACITY 370 UG/DL (250-450)
[2020-01-11 13:15] LABS: H PYLORI QUALITATIVE IgG NEGATIVE (NEGATIVE)
== END ==
LOC: M LAB REF 19:04
PROVIDERS: ATTEND Internal Medicine
DX: R10.9 Unspecified abdominal pain (principal); D64.9 Anemia, unspecified; R06.02 Shortness of breath

== ENCOUNTER 2020-06-18 17:14 | Emergency (ER) | payer MEDICARE ==
[~2020-06-18] VITALS: Ht 149.9 cm; Wt 55.5 kg
[2020-06-18 18:27] LABS: CALCIUM LEVEL 9.6 MG/DL (8.8-10.2); CREATININE FOR GFR 1.05 MG/DL (0.55-1.30); GLOMERULAR FILTRATION RATE 52.5 (>32); POTASSIUM SERUM 4.1 MEQ/L (3.5-5.1)
[2020-06-18] MEDS ORDERED: ISOVUE-370 76% 100ML VIAL As Ordered ONE (18:31)
--- NOTE | 2020-06-18 19:03 | REPVR ---
PROCEDURE INFORMATION: Exam: CT Neck With Contrast Exam date and time: 06/18/2020 6:36 PM Age: 89 years old Clinical indication: Dysphagia / difficulty swallowing; Additional info: Fb. Fullness sensation. Hard to swallow TECHNIQUE: Imaging protocol: Computed tomography images of the neck with intravenous contrast. Radiation optimization: All CT scans at this facility use at least one of these dose optimization techniques: automated exposure control; mA and/or kV adjustment per patient size (includes targeted exams where dose is matched to clinical indication); or iterative reconstruction. Contrast material: ISOVUE 370; Contrast volume: 75 ml; Contrast route: INTRAVENOUS (IV); COMPARISON: No relevant prior studies available. FINDINGS: Nasopharynx: Unremarkable. Oropharynx: Unremarkable. No significant tonsillar enlargement. Hypopharynx: Unremarkable. Larynx: Unremarkable. Normal epiglottis. Retropharyngeal space: No prevertebral soft tissue swelling. No retropharyngeal abscess. Submandibular/Parotid glands: Normal. Glands are normal in size. Thyroid: Normal. No enlarged or calcified nodules. Lymph nodes: Unremarkable. No lymphadenopathy. Trachea: Visualized trachea is unremarkable. No radiopaque foreign body is seen. Lungs: There is a normal variant azygos lobe. Diffuse ground-glass attenuation is seen in both upper lobes most likely due to edema. It does not have the typical appearance of Covid pneumonia. Esophagus: No radiopaque foreign body is seen within the esophagus. Bones/joints: Unremarkable. No acute fracture. Soft tissues: Unremarkable. No significant soft tissue swelling. IMPRESSION: No acute findings in the neck. There may be edema within the upper lobes of the lungs. Electronically signed by: Alicia Ivy On 06/18/2020 19:03:26 PM
[2020-06-18 19:45] VITALS: BP 171/76
--- NOTE | 2020-06-19 11:53 | ED PDOC ---
Post-Departure Follow-Up dr reyes faxed formal report of ct neck for fu Jamin Gallardo MD Jun 19, 2020 11:53
== END 2020-06-18 20:05 | disposition home or self-care (01) ==
LOC: EDBD 17:14 → M ED 17:14
DX: R13.10 Dysphagia, unspecified (principal); I10 Essential (primary) hypertension; Z79.899 Other long term (current) drug therapy; Z88.2 Allergy status to sulfonamides; Z88.1 Allergy status to other antibiotic agents; Z88.8 Allergy status to other drugs, medicaments and biological substances
CPT/HCPCS: 70491; 80048; 99284; Q9967

== ENCOUNTER 2020-07-20 15:23 | Inpatient (IN) | payer MEDICARE ==
[~2020-07-20] VITALS: Ht 149.9 cm; Wt 69.1 kg
[2020-07-20] MEDS ORDERED: LOSA100T50 PO (15:48)
[2020-07-20] MEDS ORDERED: FURO40TA2 PO (15:48)
[2020-07-20] MEDS ORDERED: DAILTAB62 PO (15:48)
[2020-07-20] MEDS ORDERED: ELIQ2.5T PO (15:48)
[2020-07-20] MEDS ORDERED: ACET-897 PO (15:48)
[2020-07-20] MEDS ORDERED: SHIN50IN IM (15:48)
[2020-07-20 16:09] LABS: BASO # 0.1 10^3/uL (0.0-0.2); BASO % 0.4 % (0.0-1.0); EOS % 0.2 % (0.0-3.0); HEMATOCRIT 38.7 % (36.0-47.0); HEMOGLOBIN 13.1 g/dl (12.0-15.5); LYMPH # 1.3 10^3/uL (1.5-5.0); MEAN CORPUSCULAR HEMOGLOBIN 27.6 pg (27.0-33.0); MEAN CORPUSCULAR HGB CONC 33.9 g/dl (32.0-36.5); MEAN CORPUSCULAR VOLUME 81.5 fl (80.0-96.0); MONO # 0.6 10^3/uL (0.0-0.8); MONO % 4.9 % (2.0-8.0); NEUTROPHILS # 10.5 10^3/uL (1.5-8.5); NEUTROPHILS % 83.7 % (36.0-66.0); PLATELET COUNT, AUTOMATED 173 10^3/uL (150-450); RED BLOOD COUNT 4.75 10^6/uL (4.00-5.40); WHITE BLOOD COUNT 12.5 10^3/uL (4.0-10.0)
--- NOTE | 2020-07-20 16:13 | REP ---
INDICATION: CHEST PAIN COMPARISON: 05/06/2019 TECHNIQUE: Portable AP view of the chest FINDINGS: The mediastinum and cardiac silhouette are stable. The lung avalos demonstrate chronic appearing interstitial changes although superimposed subtle interstitial process cannot be excluded. No discrete focal consolidation. No effusion. No pneumothorax. Skeletal structures demonstrate stable degenerative changes and scoliosis. IMPRESSION: Chronic appearing changes although mild superimposed interstitial process cannot be excluded. No focal consolidation or effusion. <Electronically signed by Noah Giraldo > 07/20/20 [id number]
[2020-07-20 16:41] LABS: CALCIUM LEVEL 9.8 MG/DL (8.8-10.2); CK-MB VALUE MASS 2.2 NG/ML (<3.6); CREATININE FOR GFR 1.2 MG/DL (0.55-1.30); MB/CK RELATIVE INDEX 3.38 (< OR =4); POTASSIUM SERUM 3.9 MEQ/L (3.5-5.1); TROPONIN I 0.03 NG/ML (< 0.10)
[2020-07-20 17:13] LABS: THYROID STIMULATING HORMONE 5.81 uIU/ML (0.358-3.740)
[2020-07-20] MEDS ORDERED: METOPROLOL TART 25 MG TABLET PO ONE (17:55)
[2020-07-20] MEDS ORDERED: FUROSEMIDE 40MG/4ML VIAL (J1940) IV ONE (18:35)
[2020-07-20] MEDS ORDERED: D31000TA2 PO (18:48)
[2020-07-20] MEDS ORDERED: ZOLO100T PO (18:48)
[2020-07-20] MEDS ORDERED: AZEL0.055 NARES (18:48)
[2020-07-20] MEDS ORDERED: ACET650T3 PO (18:48)
[2020-07-20] MEDS ORDERED: METO1TAB7 PO (18:48)
--- NOTE | 2020-07-20 18:53 | ECGEPIP ---
[facility] - ED Test Date: 2020-07-20 Pat Name: ANUSHA ALVARENGA Department: Room: - Gender: Female Medical Fee Clerk: JESSICA : 1930 Requested By: Jamin Schmid Order Number: [id number] Reading MD: Odalis Alas Measurements Intervals [place] Rate: 115 P: [place]: QRS: 63 QRSD: 82 T: -6 QT: 346 QTc: 478 Interpretive Statements Atrial fibrillation with rapid ventricular response ST & T wave abnormality, consider ischemia Electronically Signed on 07-20-2020 18:52:56 EST by Odalis Alas
[2020-07-20] MEDS ORDERED: MAALOX 30 ML SUSP *UDC PO PRN (19:35)
[2020-07-20] MEDS ORDERED: MOM 30ML SUSPENSION UDC PO PRN (19:35)
--- NOTE | 2020-07-20 19:59 | HPEPDOC ---
[facility] Medical History & Physical Date of Admission Jul 20, 2020 Date of Service: Jul 20, 2020 History and Physical CHIEF COMPLAINT: Shortness of breath HISTORY OF PRESENT ILLNESS: 89-year-old female history of congestive heart failure and atrial fibrillation who presents to the emergency department due to increasing shortness of breath, exertional dyspnea, and intermittent palpitations. She tells me that shes noticed her symptoms worsening over the past week and are associated with a cough and a runny nose, her COVID test is negative here. She denies chest pain or abdominal pain. In the emergency department she was given 1 dose of [address] Dominguez spoke with Dr. Macario ergonomist to discuss her heart rate which has been running around 110-120. He recommended one-time dose of metoprolol to 25 mg by mouth and to continue her home dose of metoprolol XL 50 mg daily. Patient will be admitted for management of acute on chronic congestive heart failure exacerbation and atrial fibrillation with RVR. PAST MEDICAL/SURGICAL HISTORY: Congestive heart failure Atrial fibrillation Hyperlipidemia Anxiety and depression Cholecystectomy Appendectomy Tonsillectomy Cataract removal SOCIAL HISTORY: Denies alcohol use Denies tobacco use Denies illicit drug use FAMILY HISTORY: Reviewed and none contributory to this admission ALLERGIES: Please see below. REVIEW OF SYSTEMS: 10 point review of systems complete all negative otherwise stated in HPI HOME MEDICATIONS: Please see below. PHYSICAL EXAMINATION: Constitutional: Awake and alert, in no apparent distress ENT: Sclera are clear Respiratory: mild crackles on lung bases bilaterally. No respiratory distress. No use of accessory muscles. Cardiovascular: Irregular rhythm. Rate fast 115 on monitor. No JVD Gastrointestinal: Abdomen is soft, non distended, non tender, BS present. Musculoskeletal: 1+ lower extremity pitting edema. Neurologic: No focal neurological deficit. Mental Status: A&O x3, normal affect LABORATORY DATA: See below. IMAGING: See chart MICROBIOLOGY: Please see below. ASSESSMENT/PLAN 89-year-old female history of congestive heart failure and atrial fibrillation who presents to the emergency department due to increasing shortness of breath found to be in CHF exacerbation and having atrial fibrillation with rapid response. Patient admitted for medical management. # CHF exacerbation: EF unknown, I dont see a previous echo in [facility]. I will order an echo. Dieresis with IV Lasix. Strict ins/outs. Low salt diet. Fluid restriction, daily weights, elevate head of bed. PCU on tele. Monitor electrolytes and replace. BNP 4612. # A fib w RVR: possibly triggered by the CHF exacerbation. ED discussed with Dr Macario who recommended recommended one-time dose of metoprolol to 25 mg by mouth and to continue her home dose of metoprolol XL 50 mg daily. If her rapid response doesnt resolve with improvement of her CHF exacerbation, he can be consulted tomorrow. Shes anticoagulated with eliquis which can be continued. # Hypertension: Continue home meds losartan. Monitor and titrate #Anxiety/depression: Continue sertraline # DVT prophylaxis: Antione Diazchitra Hospitalist Vital Signs Vital Signs Date Time Temp Pulse Resp B/P (MAP) Pulse Ox O2 Delivery O2 Flow Rate FiO2 07/20/20 19:05 116 96 07/20/20 19:00 18 152/95 (114) Room Air 07/20/20 15:31 98.2 Laboratory Data Labs 24H Laboratory Tests 2 07/20/20 15:58: Immature Granulocyte % (Auto) 0.8, Neutrophils (%) (Auto) 83.7H, Lymphocytes (%) (Auto) 10.0L, Monocytes (%) (Auto) 4.9, Eosinophils (%) (Auto) 0.2, Basophils (%) (Auto) 0.4, Neutrophils # (Auto) 10.5H, Lymphocytes # (Auto) 1.3L, Monocytes # (Auto) 0.6, Eosinophils # (Auto) 0.0, Basophils # (Auto) 0.1, Nucleated Red Blood Cells % (auto) 0.0, Anion Gap 8, Glomerular Filtration Rate 45.0, Calcium Level 9.8, Total Creatine Kinase 65, Creatine Kinase MB 2.2, Creatine Kinase MB Relative Index 3.38, Troponin I 0.03, SW-Rds-X-Type Natriuretic Peptide 4612H, Thyroid Stimulating Hormone (TSH) 5.810H, Free Thyroxine 1.00 07/20/20 16:50: Urine Color YELLOW, Urine Appearance CLEAR, Urine pH 5.0, Urine Specific [place] 1.010, Urine Protein NEGATIVE, Urine Glucose (UA) NEGATIVE, Urine Ketones NEGATIVE, Urine Blood 1+H, Urine Nitrite NEGATIVE, Urine Bilirubin NEGATIVE, Urine Urobilinogen 0.2, Urine Leukocyte Esterase NEGATIVE, Urine WBC (Auto) 1, Urine RBC (Auto) 1, Urine Hyaline Casts (Auto) 7, Urine Bacteria (Auto) NEGATIVE, Urine Squamous Epithelial Cells 0, Urine Mucus (Auto) SMALL, Urine Sperm (Auto) CBC/BMP Laboratory Tests 07/20/20 15:58 Microbiology Microbiology 07/20/20 Respiratory Virus Panel (PCR) (MATT) - Final, Complete Home Medications Scheduled Apixaban (Eliquis) 2.5 Mg Tablet, 2.5 MG PO BID Cholecalciferol (Vitamin D3) (Vitamin D3) 1,000 Unit Tablet, 2,000 UNITS PO DAILY Furosemide (Furosemide) 40 Mg Tablet, 40 MG PO DAILY Losartan Potassium (Losartan Potassium) 100 Mg Tablet, 100 MG PO DAILY Metoprolol Succinate (Metoprolol Succinate) 50 Mg Tab.er.24h, 50 MG PO QHS Multivitamin with Iron (Daily Vitamin + Iron) 1 Each Tablet, 1 TAB PO QHS Sertraline Hcl (Zoloft) 100 Mg Tablet, 100 MG PO QHS Scheduled PRN Acetaminophen (Pain Reliever) 650 Mg Tablet.er, 1,300 MG PO DAILY PRN for PAIN Azelastine HCl (Azelastine HCl) 0.15% [place].pump, 2 SPRAY NARES BID PRN for NASAL CONGESTION Allergies Coded Allergies: Sulfa (Sulfonamide Antibiotics) (Verified Allergy, Mild, RASH, 06/18/20) nitrofurantoin (Verified Allergy, Mild, RASH, ITCHING, 06/18/20) ciprofloxacin (Verified Adverse Reaction, Intermediate, LEGS SWOLLEN, 06/18/20) milk (Verified Adverse Reaction, Intermediate, diarrhea, 07/20/20) A-FIB/CHADSVASC A-FIB History Current/History of A-Fib/PAF?: Yes Current PO Anticoag Therapy: Yes TIP BINGHAM MD Jul 20, 2020 19:59
[2020-07-20] MEDS ORDERED: METOPROLOL SUCC (TopROL XL) 50MG **XL** TAB PO SCH (21:00)
[2020-07-20 21:15] VITALS: BP 133/86
[2020-07-20] MEDS: DOCUSATE SODIUM 100MG CAPSULE PO SCH (21:34)
[2020-07-20] MEDS: APIXABAN 2.5 MG TAB (ELIQUIS) PO SCH (21:34)
[2020-07-20] MEDS: SERTRALINE 100 MG TAB PO SCH (21:34)
[2020-07-20] MEDS: ACETAMINOPHEN TAB 650MG DOSE (2X325MG) PO PRN (22:43)
--- NOTE | 2020-07-20 23:27 | REPVR ---
PROCEDURE INFORMATION: Exam: US Duplex Lower Extremity Veins, Bilateral Exam date and time: 07/20/20 (10:55pm) Age: 89 years old Clinical indication: Leg cramping TECHNIQUE: Imaging protocol: Real-time duplex ultrasound of the extremities with 2-D hassan scale, color Doppler flow and spectral waveform analysis with image documentation. Complete exam focused on the bilateral lower extremity veins. COMPARISON: No relevant prior studies available FINDINGS: Right deep veins: Unremarkable. The common femoral, femoral, proximal profunda femoral and popliteal veins are patent without thrombus. Normal Doppler waveforms. Normal compressibility and/or augmentation response. Right superficial veins: Saphenofemoral junction is patent without thrombus. Left deep veins: Unremarkable. The common femoral, femoral, proximal profunda femoral and popliteal veins are patent without thrombus. Normal Doppler waveforms. Normal compressibility and/or augmentation response. Left superficial veins: Saphenofemoral junction is patent without thrombus. Soft tissues: Unremarkable. IMPRESSION: No evidence of deep vein thrombosis (both legs examined). Electronically signed by: Shelby Cagle On 07/20/2020 23:27:09 PM
[2020-07-21] VITALS (8 sets, daily range): BP systolic 116–138; BP diastolic 65–97
[2020-07-21] MEDS ORDERED: METOPROLOL TART 25 MG TABLET PO ONE (00:05)
[2020-07-21 06:06] LABS: HEMATOCRIT 38.2 % (36.0-47.0); HEMOGLOBIN 12.7 g/dl (12.0-15.5); MEAN CORPUSCULAR HEMOGLOBIN 27.1 pg (27.0-33.0); MEAN CORPUSCULAR HGB CONC 33.2 g/dl (32.0-36.5); MEAN CORPUSCULAR VOLUME 81.4 fl (80.0-96.0); PLATELET COUNT, AUTOMATED 169 10^3/uL (150-450); RED BLOOD COUNT 4.69 10^6/uL (4.00-5.40); WHITE BLOOD COUNT 12.5 10^3/uL (4.0-10.0)
[2020-07-21 06:29] LABS: ALBUMIN 3.4 GM/DL (3.2-5.2); BILIRUBIN,TOTAL 0.3 MG/DL (0.2-1.0); CALCIUM LEVEL 8.9 MG/DL (8.8-10.2); CREATININE FOR GFR 1.03 MG/DL (0.55-1.30); GLOMERULAR FILTRATION RATE 53.7 (>32); MAGNESIUM LEVEL 2.2 MG/DL (1.8-2.4); POTASSIUM SERUM 3.8 MEQ/L (3.5-5.1); TOTAL PROTEIN 7.2 GM/DL (6.4-8.2)
[2020-07-21] MEDS: FUROSEMIDE 20MG/2ML VIAL (J1940) IV SCH ×2 (08:09→17:12)
[2020-07-21] MEDS: APIXABAN 2.5 MG TAB (ELIQUIS) PO SCH ×2 (08:09→20:39)
[2020-07-21] MEDS: DOCUSATE SODIUM 100MG CAPSULE PO SCH ×2 (08:09→20:39)
[2020-07-21] MEDS: LOSARTAN 50MG TABLET PO SCH (08:09)
--- NOTE | 2020-07-21 13:00 | IPNPDOC ---
Subjective Date Seen The patient was seen on 07/21/20. Subjective Chief Complaint/HPI Mrs. Hogue is an 89 year old female with CHF and atrial fibrillation who presents with increasing dyspnea, exertional dyspnea, and intermittent p alpitations. Overnight, they were able to control her heart rate. This morning, her resting dyspnea improved, but still has exertional dyspnea. Otherwise denies chest pain. Objective Physical Examination General Exam: Positive: Alert, Cooperative Eye Exam: Positive: EOMI; Negative: Sclera icteric ENT Exam: Positive: Atraumatic Chest Exam: Positive: Rales (bilaterally) Heart Exam: Positive: Rate Normal, Irregular Rhythm Abdomen Exam: Positive: Normal bowel sounds, Soft; Negative: Tenderness Extremity Exam: Positive: Edema (Bilateral pitting edema) Psych Exam: Positive: Mental status NL, Mood NL Assessment /Plan Assessment Mrs. Hogue is an 89 year old female with CHF and atrial fibrillation who presents with increasing dyspnea, exertional dyspnea, and intermittent palpitations. She was found to have CHF exacerbation and was in atrial fibrillation with RVR. She was given an additional Metoprol and rate was better controlled. Still fluid overloaded. Pending echocardiogram. Plan/VTE VTE Prophylaxis Ordered?: Yes Plan 1. Unspecified acute decompensated congestive heart failure -2gm sodium diet, fluid restriction, daily weights -Continue lasix 2. Atrial fibrillation with RVR -Possibly secondary to CHF exacerbation -Better controlled -Continue metoprolol -Continue Eliquis 3. Hypertension -Blood pressure controlled -Continue Losartan and Metoprolol 4. Depression/Anxiety -Continue sertraline 5. DVT ppx -On Eliquis VS, I&O, 24H, Fishbone Vital Signs/I&O Vital Signs Date Time Temp Pulse Resp B/P (MAP) Pulse Ox O2 Delivery O2 Flow Rate FiO2 07/21/20 12:00 97.1 91 18 134/97 (109) 96 Room Air I&O- Last 24 Hours up to 6 AM 07/21/20 06:00 Intake Total 350 ml Output Total 500 ml Balance -150 ml Laboratory Data 24H LABS Laboratory Tests 2 07/20/20 15:58: Immature Granulocyte % (Auto) 0.8, Neutrophils (%) (Auto) 83.7H, Lymphocytes (%) (Auto) 10.0L, Monocytes (%) (Auto) 4.9, Eosinophils (%) (Auto) 0.2, Basophils (%) (Auto) 0.4, Neutrophils # (Auto) 10.5H, Lymphocytes # (Auto) 1.3L, Monocytes # (Auto) 0.6, Eosinophils # (Auto) 0.0, Basophils # (Auto) 0.1, Nucleated Red Blood Cells % (auto) 0.0, Anion Gap 8, Glomerular Filtration Rate 45.0, Calcium Level 9.8, Total Creatine Kinase 65, Creatine Kinase MB 2.2, Creatine Kinase MB Relative Index 3.38, Troponin I 0.03, [id number] Natriuretic Peptide 4612H, Thyroid Stimulating Hormone (TSH) 5.810H, Free Thyroxine 1.00 07/20/20 16:50: Urine Color YELLOW, Urine Appearance CLEAR, Urine pH 5.0, Urine Specific [place] 1.010, Urine Protein NEGATIVE, Urine Glucose (UA) NEGATIVE, Urine Ketones NEGATIVE, Urine Blood 1+H, Urine Nitrite NEGATIVE, Urine Bilirubin NEGATIVE, Urine Urobilinogen 0.2, Urine Leukocyte Esterase NEGATIVE, Urine WBC (Auto) 1, Urine RBC (Auto) 1, Urine Hyaline Casts (Auto) 7, Urine Bacteria (Auto) NEGATIVE, Urine Squamous Epithelial Cells 0, Urine Mucus (Auto) SMALL, Urine Sperm (Auto) 07/21/20 05:38: Nucleated Red Blood Cells % (auto) 0.0, Anion Gap 7L, Glomerular Filtration Rate 53.7, Calcium Level 8.9, Magnesium Level 2.2, Total Bilirubin 0.3, Aspartate Amino Transf (AST/SGOT) 30, Alanine Aminotransferase (ALT/SGPT) 31, Alkaline Phosphatase 79, Total Protein 7.2, Albumin 3.4, Albumin/Globulin Ratio 0.9L CBC/BMP Laboratory Tests 07/20/20 15:58 07/21/20 05:38 Microbiology Microbiology 07/20/20 Respiratory Virus Panel (PCR) ([facility]) - Final, Complete EUNICE LEIJA 13, 2021 13:00
[2020-07-21] MEDS: ACETAMINOPHEN TAB 650MG DOSE (2X325MG) PO PRN (14:45)
[2020-07-21] MEDS ORDERED: METOPROLOL 5 MG/5 ML VIAL IV ONE (15:00)
[2020-07-21] MEDS: METOPROLOL SUCC *XL* 25MG TAB (TopROL *XL*) PO SCH (20:39)
[2020-07-21] MEDS: SERTRALINE 100 MG TAB PO SCH (20:39)
[2020-07-22] VITALS: BP 104/58
[2020-07-22 04:00] VITALS: BP 105/55
[2020-07-22 06:09] LABS: HEMATOCRIT 39.4 % (36.0-47.0); MEAN CORPUSCULAR HEMOGLOBIN 27.4 pg (27.0-33.0); MEAN CORPUSCULAR VOLUME 82.9 fl (80.0-96.0); PLATELET COUNT, AUTOMATED 161 10^3/uL (150-450); RED BLOOD COUNT 4.75 10^6/uL (4.00-5.40); WHITE BLOOD COUNT 11.5 10^3/uL (4.0-10.0)
[2020-07-22 06:41] LABS: CALCIUM LEVEL 8.9 MG/DL (8.8-10.2); CREATININE FOR GFR 1.24 MG/DL (0.55-1.30); GLOMERULAR FILTRATION RATE 43.4 (>32); POTASSIUM SERUM 4.3 MEQ/L (3.5-5.1)
[2020-07-22 08:00] VITALS: BP 140/95
[2020-07-22] MEDS: FUROSEMIDE 20MG/2ML VIAL (J1940) IV SCH ×2 (08:16→17:03)
[2020-07-22] MEDS: APIXABAN 2.5 MG TAB (ELIQUIS) PO SCH ×2 (08:16→20:31)
[2020-07-22] MEDS: LOSARTAN 50MG TABLET PO SCH (08:16)
[2020-07-22] MEDS: DOCUSATE SODIUM 100MG CAPSULE PO SCH ×3 (08:16→21:00)
--- NOTE | 2020-07-22 11:47 | IPNPDOC ---
Subjective Date Seen The patient was seen on 07/22/20. Subjective Chief Complaint/HPI Mrs. Hogue is an 89 year old female with CHF and atrial fibrillation who presents with increasing dyspnea, exertional dyspnea, and intermittent p alpitations. Overnight, she had 2 ice cream then had to run to the bathroom a few times to the bathroom for diarrhea. She is lactose intolerant and usually takes a lactase medication with her diary product. It is not listed on her med list. This may have caused her heart rate to spike into the 120s, but otherwise, her heart rate as been maintaining in the 70s. She walked with physical therapy and her heart rate increased to 115. Objective Physical Examination General Exam: Positive: Alert, Cooperative Eye Exam: Positive: EOMI; Negative: Sclera icteric ENT Exam: Positive: Atraumatic Chest Exam: Positive: Rales (bilaterally) Heart Exam: Positive: Rate Normal, Irregular Rhythm Abdomen Exam: Positive: Normal bowel sounds, Soft; Negative: Tenderness Extremity Exam: Positive: Edema (Bilateral pitting edema) Psych Exam: Positive: Mental status NL, Mood NL Assessment /Plan Assessment Mrs. Hogue is an 89 year old female with CHF and atrial fibrillation who presents with increasing dyspnea, exertional dyspnea, and intermittent palpitations. She was found to have CHF exacerbation and was in atrial fibrillation with RVR. Increased her beta rajan to help control heart rate. Physical therapy worked with her. Heart rate in the 115 with ambulation. Antic ipated one more day before discharge. Echocardiogram results pending. Will continue with diuresis. Plan/VTE VTE Prophylaxis Ordered?: Yes Plan 1. Unspecified acute decompensated congestive heart failure -2gm sodium diet, fluid restriction, daily weights -Continue lasix 2. Atrial fibrillation with RVR -Possibly secondary to CHF exacerbation -Better controlled -Continue metoprolol -Continue Eliquis 3. Hypertension -Blood pressure controlled -Continue Losartan and Metoprolol 4. Depression/Anxiety -Continue sertraline 5. DVT ppx -On Eliquis Disposition: If she clinically improves, possible discharge home tomorrow. VS, I&O, 24H, Fishbone Vital Signs/I&O Vital Signs Date Time Temp Pulse Resp B/P (MAP) Pulse Ox O2 Delivery O2 Flow Rate FiO2 07/22/20 08:00 97.5 94 20 140/95 (110) 95 Room Air I&O- Last 24 Hours up to 6 AM 07/22/20 05:59 Intake Total 1380 ml Output Total 950 ml Balance 430 ml Laboratory Data 24H LABS Laboratory Tests 2 07/22/20 05:35: Nucleated Red Blood Cells % (auto) 0.0, Anion Gap 7L, Glomerular Filtration Rate 43.4, Calcium Level 8.9 CBC/BMP Laboratory Tests 07/22/20 05:35 Microbiology Microbiology 07/20/20 Respiratory Virus Panel (PCR) ([facility]) - Final, Complete EUNICE LEIJA DO Jul 22, 2020 11:47
[2020-07-22 12:00] VITALS: BP 109/65
[2020-07-22 16:00] VITALS: BP 113/56
[2020-07-22 20:00] VITALS: BP 132/78
[2020-07-22] MEDS: SERTRALINE 100 MG TAB PO SCH (20:31)
[2020-07-22] MEDS: METOPROLOL SUCC *XL* 25MG TAB (TopROL *XL*) PO SCH (20:32)
[2020-07-23] VITALS: BP 139/76
[2020-07-23 06:10] LABS: HEMATOCRIT 36.1 % (36.0-47.0); HEMOGLOBIN 11.9 g/dl (12.0-15.5); MEAN CORPUSCULAR HEMOGLOBIN 27.2 pg (27.0-33.0); MEAN CORPUSCULAR VOLUME 82.6 fl (80.0-96.0); PLATELET COUNT, AUTOMATED 152 10^3/uL (150-450); RED BLOOD COUNT 4.37 10^6/uL (4.00-5.40); WHITE BLOOD COUNT 9.1 10^3/uL (4.0-10.0)
[2020-07-23 06:28] LABS: CALCIUM LEVEL 8.5 MG/DL (8.8-10.2); CREATININE FOR GFR 1.12 MG/DL (0.55-1.30); GLOMERULAR FILTRATION RATE 48.8 (>32); POTASSIUM SERUM 3.6 MEQ/L (3.5-5.1)
[2020-07-23 08:00] VITALS: BP 139/84
[2020-07-23] MEDS: APIXABAN 2.5 MG TAB (ELIQUIS) PO SCH (08:03)
[2020-07-23 08:04] VITALS: BP 139/84
[2020-07-23] MEDS: FUROSEMIDE 20MG/2ML VIAL (J1940) IV SCH (08:04)
[2020-07-23] MEDS: LOSARTAN 50MG TABLET PO SCH (08:04)
[2020-07-23] MEDS: DOCUSATE SODIUM 100MG CAPSULE PO SCH (08:04)
[2020-07-23] MEDS ORDERED: SLF 3 ML SYR IV PRN (08:05)
[2020-07-23] MEDS ORDERED: METO1TAB32 PO (10:33)
[2020-07-23 12:00] VITALS: BP 141/77
--- NOTE | 2020-07-23 12:03 | ECHO ---
DATE OF PROCEDURE: 07/21/2020 Age: 89 Gender: Female Height: 150 cm Weight: 68 kg REFERRING PHYSICIAN: Lucas Escudero MD INDICATION: Congestive heart failure. MEASUREMENTS: LA 3.1 cm Aorta 2.8 cm IVS 1.2 cm LV 3.4 cm LVPW 1.2 cm IVC 2.1 cm FINDINGS: This study is of good technical quality. The patient is in atrial fibrillation with mildly tachycardic rate and wide QRS complex. The left ventricle has normal size and hyperdynamic systolic function, estimated LVEF approximately 70%. The right ventricle appears to be normal size and has normal systolic function. Both atria are severely enlarged. Aortic valve is mildly sclerotic. Mitral valve has mild degenerative abnormalities, but structurally appears normal. Tricuspid valve appears normal. Pulmonic valve also appears normal. No pericardial effusion is noted. Inferior vena cava is of normal size and appropriately collapses with inspiration indicative of normal central venous pressure. The aortic root appears normal. Visualized segment of the ascending aorta also appears normal. Abdominal aorta was not well seen. Doppler interrogation reveals functionally nonstenotic valve with minimal insufficiency. There is also trace mitral insufficiency and mild tricuspid insufficiency. Calculated pulmonary artery pressure is approximately 50 mmHg corresponding to moderate pulmonary hypertension. Trace pulmonic insufficiency is seen. Evaluation of diastolic function is inconclusive due to underlying atrial fibrillation. CONCLUSIONS: 1. Study is of good technical quality, underlying atrial fibrillation with rapid ventricular response. 2. Normal LV size with marked LVH and normal LV systolic function. 3. Normal RV size and systolic function. 4. Severe biatrial enlargement. 5. Aortic sclerosis, but no significant stenosis and mild insufficiency. 6. Mild tricuspid insufficiency. 7. Likely elevated central venous pressure and moderate pulmonary hypertension. MTDD
[2020-07-23] MEDS ORDERED: SLF 3 ML SYR IV SCH (14:00)
--- NOTE | 2020-07-23 23:34 | DS.PDOC ---
Discharge Summary General Date of Admission Jul 20, 2020 at 19:49 Date of Discharge Jul 23, 2020 Attending Physician: EUNICE LEIJA DO Discharge Summary PROCEDURES PERFORMED DURING STAY: None ADMITTING DIAGNOSES: 1. Acute decompensated HFpEF 2. A.fib with RVR 3. Hypertension 4. Anxiety and depression DISCHARGE DIAGNOSES: 1. Acute decompensated HFpEF 2. A.fib with RVR 3. Hypertension 4. Anxiety and depression COMPLICATIONS/CHIEF COMPLAINT: Atrial Fibrillation With Rapid Ventricular Response. HISTORY OF PRESENT ILLNESS: Mrs. Hogue is an 89 year old female with CHF and atrial fibrillation who presented to the ED for increasing exertional dyspnea and palpitations. Symptoms started about a week ago, and was progressively worsening. Patient also had a runny nose and cough. COVID test was negative. While in the ED, she received both 40mg IV Lasix and 25mg PO Toprol XL. patient was admitted for acute decompensated CHF exacerbation and atrial fibrillation with RVR. HOSPITAL COURSE: The following morning, her heart rate increased up to the 150s. She was given IV Lopressor which helped controlled her heart rate. Her Toprol XL was increased from 50mg qD to 75mg qD. Her heart rate was better controlled at this dosage. She was diuresed with IV Lasix 20mg BID. She did well. She worked with physical therapy who cleared her for home. Today, she felt well. She denies any chest pain, dyspnea, or abdominal pain. She felt ready for home and was subsequently discharged home. DISCHARGE MEDICATIONS: Please see below. ALLERGIES: Please see below. PHYSICAL EXAMINATION ON DISCHARGE: VITAL SIGNS: Please see below. GENERAL: Comfortable, in no apparent distress HEENT: Head normocephalic, atraumatic NECK: Supple CARDIOVASCULAR EXAMINATION: Rate controlled, but irregular rhythm RESPIRATORY EXAMINATION: Lungs clear to auscultation bilaterally ABDOMINAL EXAMINATION: Soft, non-tender, normal bowel sounds EXTREMITIES: Bilateral pitting edema SKIN: Warm and dry NEUROLOGICAL EXAMINATION: CN 3-12 grossly intact PSYCHIATRIC EXAMINATION: Normal mood and affect LABORATORY DATA: Please see below. IMAGING: CXR Chronic appearing changes although mild superimposed interstitial process cannot be excluded. No focal consolidation or effusion. Echocardiogram 1. Study is of good technical quality, underlying atrial fibrillation with rapid ventricular response. 2. Normal LV size with marked LVH and normal LV systolic function. 3. Normal RV size and systolic function. 4. Severe biatrial enlargement. 5. Aortic sclerosis, but no significant stenosis and mild insufficiency. 6. Mild tricuspid insufficiency. 7. Likely elevated central venous pressure and moderate pulmonary hypertension. PROGNOSIS: Good ACTIVITY: As tolerated. DIET: 2gm sodium diet with 1800mL fluid restriction DISCHARGE PLAN: Home with home health DISPOSITION: Home Health Service. DISCHARGE INSTRUCTIONS: 1. Follow up with PCP within 1 week 2. Follow up with cardiology in 1 to 2 weeks DISCHARGE CONDITION: Stable Total time spent on discharge planning, discharge summary, and medication reconciliation: 55 minutes Vital Signs/I&Os Vital Signs Date Time Temp Pulse Resp B/P (MAP) Pulse Ox O2 Delivery O2 Flow Rate FiO2 07/23/20 12:00 97.6 82 18 141/77 (98) 98 Room Air I&O- Last 24 Hours up to 6 AM 07/23/20 06:00 Intake Total 1140 ml Output Total 1125 ml Balance 15 ml Laboratory Data Labs 24H Laboratory Tests 2 07/23/20 05:45: Nucleated Red Blood Cells % (auto) 0.0, Anion Gap 7L, Glomerular Filtration Rate 48.8, Calcium Level 8.5L CBC/BMP Laboratory Tests 07/23/20 05:45 Microbiology Microbiology 07/20/20 Respiratory Virus Panel (PCR) ([facility]) - Final, Complete Discharge Medications Scheduled Apixaban (Eliquis) 2.5 Mg Tablet, 2.5 MG PO BID, (Reported) Cholecalciferol (Vitamin D3) (Vitamin D3) 1,000 Unit Tablet, 2,000 UNITS PO DAILY, (Reported) Furosemide (Furosemide) 40 Mg Tablet, 40 MG PO DAILY, (Reported) Losartan Potassium (Losartan Potassium) 100 Mg Tablet, 100 MG PO DAILY, (Reported) Metoprolol Succinate (Metoprolol Succinate) 25 Mg Tab.er.24h, 75 MG PO QHS Multivitamin with Iron (Daily Vitamin + Iron) 1 Each Tablet, 1 TAB PO QHS, (Reported) Sertraline Hcl (Zoloft) 100 Mg Tablet, 100 MG PO QHS, (Reported) Scheduled PRN Acetaminophen (Pain Reliever) 650 Mg Tablet.er, 1,300 MG PO DAILY PRN for PAIN, (Reported) Azelastine HCl (Azelastine HCl) 0.15% [place].pump, 2 SPRAY NARES BID PRN for NASAL CONGESTION, (Reported) Allergies Coded Allergies: Sulfa (Sulfonamide Antibiotics) (Verified Allergy, Mild, RASH, 06/18/20) nitrofurantoin (Verified Allergy, Mild, RASH, ITCHING, 06/18/20) ciprofloxacin (Verified Adverse Reaction, Intermediate, LEGS SWOLLEN, 06/18/20) milk (Verified Adverse Reaction, Intermediate, diarrhea, 07/20/20) EUNICE LEIJA 15, 2021 23:34
== END 2020-07-23 15:00 | disposition home health service (06) | DRG 293 ==
LOC: M ED 15:23 → M ED INP 19:49 → ENRESERV 20:05 → M PCU 21:11
PROVIDERS: ADMIT Family Medicine; ATTEND Internal Medicine
DX: I11.0 Hypertensive heart disease with heart failure (principal); I48.91 Unspecified atrial fibrillation; I50.33 Acute on chronic diastolic (congestive) heart failure; E78.5 Hyperlipidemia, unspecified; F32.9 Major depressive disorder, single episode, unspecified; F41.9 Anxiety disorder, unspecified; E73.9 Lactose intolerance, unspecified; Z90.49 Acquired absence of other specified parts of digestive tract; Z98.49 Cataract extraction status, unspecified eye; Z66 Do not resuscitate; Z20.822 Contact with and (suspected) exposure to COVID-19; Z79.01 Long term (current) use of anticoagulants; Z79.899 Other long term (current) drug therapy; Z88.2 Allergy status to sulfonamides; Z88.1 Allergy status to other antibiotic agents; Z88.8 Allergy status to other drugs, medicaments and biological substances; Z91.011 Allergy to milk products